=== PATIENT | female | born 1975 | race Caucasian/White ===

== ENCOUNTER 2023-12-29 16:38 | Outpatient (OUT) | payer BC, SELFPAY ==
--- NOTE | 2023-12-29 | MM_ITS ---
Patient Name: COLEEN JUAN MR#: [id number] : 1975 Exam Date: 12/29/2023 Ordering Doctor: DR TINY [facility] REPORT PROCEDURE: MM TOMOSYNTHESIS SCREENING BI COMPARISON: MG MAMM SCREEN 3D BAKARI CAD, 08/22/2021. MG MAMM SCREEN 3D BAKARI CAD, 09/11/2022. INDICATIONS: Screening for malignant neoplasm Calculator Name NCI Breast Cancer Risk Assessment Tool 5 Year Breast Cancer Risk 0.70% Lifetime Breast Cancer Risk 6.60% Personal Breast Cancer No Personal Ovarian Cancer No Treatments None Family Cancers Grandmother-maternal with breast cancer at age ~40; Grandmother-maternal with ovarian cancer at age ~58; Father with brain cancer at age 46. LOCATION: [facility] BREAST COMPOSITION: Scattered areas fibroglandular density. FINDINGS: DIAGNOSTIC CATEGORY 1--NEGATIVE. NO CHANGE FROM COMPARISON ASSESSMENT. Scattered benign-appearing calcifications are present. Scattered benign-appearing lymph nodes are present. RIGHT BREAST: No significant suspicious finding. LEFT BREAST: No significant suspicious finding. RECOMMENDATIONS: ROUTINE MAMMOGRAM AND CLINICAL EVALUATION IN 12 MONTHS. PLEASE NOTE: A NORMAL MAMMOGRAM DOES NOT EXCLUDE THE POSSIBILITY OF BREAST CANCER. A CLINICALLY SUSPICIOUS PALPABLE LUMP SHOULD BE BIOPSIED. Dictated by: Ugo Silverio MD on 12/30/2023 at 09:25 Approved by: Ugo Silverio MD on 12/30/2023 at 09:26
== END 2023-12-29 16:39 | disposition home or self-care (01) ==
LOC: MAMMO 16:38
PROVIDERS: PCP Family Medicine; Visit Provider Obstetrics & Gynecology
DX: Z12.31 Encounter for screening mammogram for malignant neoplasm of breast (principal); Z80.3 Family history of malignant neoplasm of breast; Z80.41 Family history of malignant neoplasm of ovary; Z80.8 Family history of malignant neoplasm of other organs or systems
CPT/HCPCS: 77063; 77067

== ENCOUNTER 2025-01-05 14:57 | Outpatient (OUT) | payer BC, SELFPAY ==
--- OUTSIDE RECORDS SUMMARY | 2025-01-05 15:01 | XMS_ITS | CCD ---
Author Organization [facility] Care Team Providers Care 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 Name Role Phone Misha Hernandez Primary Care Provider [phone] DAVID, DR MENDOZA Admitting Unavailable DAVID, DR MENDOZA Attending Unavailable DAVID, DR MENDOZA Primary Care Unavailable DAVID, DR MENDOZA Consulting Unavailable WEST, DR LYUDMILA Wilkins Consulting Unavailable DAVID, DR MENDOZA Admitting Unavailable DAVID, DR MENDOZA Attending Unavailable DAVID, DR MENDOZA Primary Care Unavailable DAVID, DR MENDOZA Consulting Unavailable Yari Meza Unavailable Misha Hernandez MD Primary Care Provider Misha Hernandez MD Unavailable Misha Hernandez MD Primary Care Provider [phone] Misha Hernandez MD Unavailable [phone] Misha Hernandez MD Primary Care Provider IVY CANCINO Attending Unavailable MISHA HERNANDEZ Attending Unavailable MISHA HERNANDEZ Attending Unavailable Misha Hernandez MD Primary Care Provider RUSSELL YANEZ Referring Unavailable MISHA HERNANDEZ Primary Care Unavailable Allergies Allergy Classification Reported Allergen(s) Allergy Type Date of Onset Reaction(s) Facility (3 sources) bee venom Propensity to adverse reactions to drug 2 [facility] (6 sources) Honey bee venom Allergy to substance 3 [facility] Medications Current Medications Medication Drug Class(es) Dates Sig (Normalized) Sig (Original) Ascorbic Acid (4 sources) Vitamin C take 1 tablet by mouth once daily Ascorbic Acid (VITAMIN C PO) Take 1 tablet by mouth daily 0 Active Doxylamine Succinate, Sleep, (UNISOM PO) (1 source) Doxylamine Succinate, Sleep, (UNISOM PO) Take by mouth 0 Active [id number] 0.15 ml EPINEPHrine 1 mg/ml auto-injector (6 sources) alpha-Adrenergic Agonist, beta-Adrenergic Agonist, Catecholamine Start: 09-14-2023 End: 09-13-2024 EPINEPHrine (AUVI-Q) 0.15 mg/0.15 mL IJ solution auto-injector injection Indications: Bee sting reaction, accidental or unintentional, subsequent encounter Inject 0.3 mL (0.3 mg) into the shoulder, thigh, or buttocks if needed for anaphylaxis. 1 each 1 09/14/2023 Active Start: 03-02-2021 EPINEPHrine (E PIPEN) 0.3 MG/0.3ML SOAJ injection USE DIRECTED 0 03/02/2021 Active ethinyl estradiol 0.035 mg / norgestimate 0.25 mg oral tablet (13 sources) Progestin, Estrogen Start: 12-14-2024 take 1 tablet by mouth once daily norgestimate-ethinyl estradiol (SPRINTEC 28) 0.25-35 MG-MCG per tablet Indications: Irregular menstrual cycle Take 1 tablet by mouth once daily 84 tablet 4 12/14/2024 Active Start: 12-03-2023 take 1 tablet by pillo th once daily norgestimate-ethinyl estradiol (SPRINTEC 28) 0.25-35 MG-MCG per tablet Indications: Irregular menstrual cycle Take 1 tablet by mouth once daily 84 tablet 4 12/03/2023 Active Start: 08-21-2022 take 1 tablet by pillo th once daily norgestimate-ethinyl estradiol (SPRINTEC 28) 0.25-35 MG-MCG per tablet TAKE ONE TABLET BY MOUTH ONCE DAILY 28 tablet 12 08/21/2022 Active Start: 06-06-2021 take 1 tablet by pillo th once daily norgestimate-ethinyl estradiol (ORTHO-CYCLEN, 28,) 0.25-35 MG-MCG per tablet Indications: Secondary dysmenorrhea Take 1 tablet by mouth daily 1 packet 12 06/06/2021 Active Start: 05-31-2020 take 1 tablet by pillo th once daily norgestimate-ethinyl estradiol (ORTHO-CYCLEN, 28,) 0.25-35 MG-MCG per tablet Indications: Secondary dysmenorrhea Take 1 tablet by mouth daily 1 packet 12 05/31/2020 Active take 1 tablet by pillo th in the morning Sprintec 28 0.25-35 MG-MCG tablet Take 1 tablet by mouth in the morning. Active Fiber (4 sources) take 2 tablets by mouth once daily FIBER PO Indications: chewable Take 2 tablets by mouth daily Indications: chewable 0 Active Levonorgestrel-Ethinyl Estrad unknown (1 source) levothyroxine sodium 0.1 mg oral tablet (13 sources) l-Thyroxin e Start: 03-07-2024 End: 08-29-2024 levothyroxine (Synthroid) 100 MCG tablet Indications: Acquired hypothyroidism (CMS/HCC) 0.5 tablet twice daily before meals 90 tablet 1 08/29/2024 Active Start: 07-01-2022 take 0.5 tablet by m outh twice daily EUTHYROX 50 MCG tablet TAKE 1/2 (ONE-HALF) TABLET BY MOUTH TWICE DAILY ON AN EMPTY STOMACH FOR 30 DAYS 0 07/01/2022 Active Start: 06-04-2021 EUTHYROX 137 M CG tablet take 1 tablet by pillo th once daily, then take 0.5 tablet by mouth twice daily levothyroxine (SYNTHROID) 100 MCG tablet Take 1 tablet by mouth Daily 1/2 Tab BID Active Levothyroxine So dium Active liothyronine sodium 0.005 mg oral tablet (12 sources) l-Triiodothyronine Start: 01-15-2023 Liothyronin e Sodium Dec, Active Start: 07-30-2022 End: 08-29-2024 liothyronine (Cytomel) 5 MCG tablet Indications: Chronic fatigue , ESS (euthyroid sick syndrome) Take 1 tablet in AM and 1 tablet in PM on an empty stomach. VANESSA; Sigma or GreenFarseer brands only 180 tablet 1 08/29/2024 Active metroNIDAZOLE 500 mg oral tablet (1 source) Nitroimidazole Antimicrobial Start: 06-06-2020 End: 06-13-2020 take 1 tablet by mouth twice daily metroNIDAZOLE (FLAGYL) 500 MG tablet Indications: Bacterial vaginitis Take 1 tablet by mouth 2 times daily for 7 days 14 tablet 0 06/06/2020 06/13/2020 Active Multiple Vitamin (MULTI-VITAMIN DAILY PO) (3 sources) Multiple Vitamin (MULTI-VITAMIN DAILY PO) Take by mouth Active Multiple Vitamin (MULTI-VITAMIN DAILY PO) Take by mouth 0 Active Multiple Vitamin (multivitamin) tablet (3 sources) take 1 tablet by mouth once daily Multiple Vitamin (multivitamin) tablet Take 1 tablet by mouth Daily Active naproxen sodium 550 mg oral tablet (4 sources) Nonsteroidal Anti-inflammatory Drug Start: 02-24-20 17 take 1 tablet by mouth twice daily as needed for pain naproxen sodium (ANAPROX) 550 MG tablet Indications: Dysmenorrhea Take 1 tablet by mouth 2 times daily as needed for Pain 60 tablet 3 02/23/2017 Active nystatin 645170 unt/ml oral suspension (1 source) Polyene Antifungal Start: 01-16-20 take 4 mL by mouth four times daily Nystatin 620282 UNIT/ML 4 ml swish and swallow Mouth/Throat Four times a day for 14 days Dec, Active Probiotic Product (PROBIOTIC PO) (4 sources) take 1 tablet by mouth once daily Probiotic Product (PROBIOTIC PO) Take 1 tablet by mouth daily 0 Active Completed/Discontinued Medications Medication Drug Class(es) Dates Sig (Normalized) Sig (Original) Ketorolac (1 source) Nonsteroidal Anti-inflammatory Drug, Cyclooxygenase Inhibitor Start: 09-09-2016 Toradol per 15 mg Aug, 60 mg Problems Active Problems Problem Classification Problem Date Documented Da te Episodic/Chronic Abdominal pain (1 source) Abdominal pain; Translations: [Unspecified abdominal pain] Episodic Diseases of mouth; excluding dental (2 sources) Lesion of tongue; Translations: [Other diseases of tongue] 11-15-2024 Episodic Malaise and fatigue (8 sources) Fatigue; Translations: [Chronic fatigue, unspecified] Onset: 08-13-2023 08-23-2024 Chronic Mycoses (3 sources) Candidal stomatitis; Translations: [Candidiasis of mouth] Episodic Other gastrointestinal disorders (1 source) Irritable bowel syndrome; Translations: [Irritable bowel syndrome without diarrhea] Chronic Other gastrointestinal disorders (1 source) Constipation; Translations: [Constipation, unspecified] Episodic Other gastrointestinal disorders (1 source) Diarrhea; Translations: [Diarrhea, unspecified] Episodic Other nutritional; endocrine; and metabolic disorders (1 source) Body mass index 25-29 - overweight; Translations: [Body mass index (BMI) 27.0-27.9, adult] Episodic Other screening for suspected conditions (not mental disorders or infectious disease) (4 sources) Encounter for screening mammogram for malignant neoplasm of breast; Translations: [ENC SCR MAMMO MALIG NEOPLASM BREAST] Onset: 09-11-2022 Episodic Other skin disorders (2 sources) Neck swelling; Translations: [Neck swelling] Episodic Residual codes; unclassified (1 source) Family history of malignant neoplasm of breast; Translations: [FAMILY HX MALIG NEOPLASM OF BREAST] Onset: 09-15-2022 Episodic Residual codes; unclassified (1 source) Family history of malignant neoplasm of ovary; Translations: [FAM HX MALIGNANT NEOPLASM OVARY] Onset: 09-15-2022 Episodic Residual codes; unclassified (1 source) Family history of malignant neoplasm of other organs or systems; Translations: [FAM HX MALIG NEOPLASM OTH ORGN/SYS] Onset: 09-15-2022 Episodic Thyroid disorders (16 sources) Acquired hypothyroidism; Translations: [Hypothyroidism, unspecified] Onset: 08-13-2023 08-29-2024 Chronic Unclassified (1 source) Patient encounter status; Translations: [Encounter for well woman exam with routine gynecological exam] Unclassified (2 sources) CONTACT W/AND (SUSP) EXPOS COVID-19; Translations: [CONTACT W/AND (SUSP) EXPOS COVID-19] Onset: 10-05-2021 Unclassified (1 source) COUGH, UNSPECIFIED; Translations: [COUGH, UNSPECIFIED] Onset: 10-05-2021 Viral infection (1 source) COVID-19; Translations: [COVID-19] Onset: 10-05-2021 Past or Other Problems Problem Classification Problem Date Documented Da te Episodic/Chronic Other lower respiratory disease (1 source) Other specified respiratory disorders; Translations: [OTHER SPEC RESPIRATORY DISORDERS] Onset: 10-05-2021 Episodic Other nutritional; endocrine; and metabolic disorders (8 sources) Overweight; Translations: [Overweight] Onset: 08-13-2023 08-23-2024 Episodic Other upper respiratory disease (1 source) Other specified disorders of nose and nasal sinuses; Translations: [OTH SPEC D/O NOSE NASAL SINUSES] Onset: 10-05-2021 Episodic Poisoning by nonmedicinal substances (6 sources) Bee sting; Translations: [Toxic effect of venom of bees, accidental (unintentional), initial encounter] Onset: 09-14-2023 09-14-2023 Episodic Thyroid disorders (8 sources) Sick-euthyroid syndrome; Translations: [Sick-euthyroid syndrome] Onset: 08-13-2023 08-29-2024 Episodic Unclassified (1 source) CONTACT W/AND (SUSP) EXPOS COVID-19; Translations: [CONTACT W/AND (SUSP) EXPOS COVID-19] Onset: 09-30-2021 Results Test Name Value Interpretation Reference Range Facility [facility] CYTOLOGYon 12-22-2024 [facility] CYTOLOGY (NOTE) Path Number: [id number] DIAGNOSIS Imaged ThinPrep Pap - Cervical (1 monolayer slide): Specimen Adequacy: Satisfactory for evaluation. -Endocervical/transf ormation zone component is absent. Descriptive Diagnosis: Negative for intraepithelial lesion or malignancy. Cytotech Screener: EY Electronically Signed Out Silvestre Davis CT(ASCP) ey/12/22/2024 Source of Specimen: A: Imaged ThinPrep Pap - Cervical (1 monolayer slide) HPV Reflex?............. .........HPV if ASCUS Clinical History Oral Contraceptives LEEP Z01.419 Routine utility operator exam without abnormal findings Processing Lab: [address] [id number] Interpretation performed at [address] [address] This Pap Test has been evaluated with the assistance of the ThinPrep Pap Test Imaging System. The Pap smear is a screening test primarily for squamous epithelial lesions, which is subject to both false negative and false positive results. Your patient should be reminded to consult you immediately if she experiences any suspicious signs or symptoms, regardless of her Pap smear result. GYNECOLOGIC CYTOLOGY REPORT Patient Name: COLEEN MARTIN [facility] Rec: [id number] [facility] [employer] [facility] ANATOMIC PATHOLOGY [address] [place] [address]. [place], [place] [address] [facility] Original Ordering Provider: RUSSELL YANEZ [facility] Cytology Reporton 12-14-2024 Cytology report Cyto stain.thin prep Doc (Cvx/Vag) (NOTE) Path Number: [id number] DIAGNOSIS Imaged ThinPrep Pap - Cervical (1 monolayer slide): Specimen Adequacy: Satisfactory for evaluation. -Endocervical/transf ormation zone component is absent. Descriptive Diagnosis: Negative for intraepithelial lesion or malignancy. Cytotech Screener: EY Electronically Signed Out Silvestre Davis CT(ASCP) ey/12/22/2024 Source of Specimen: A: Imaged ThinPrep Pap - Cervical (1 monolayer slide) HPV Reflex?............. .........HPV if ASCUS Clinical History Oral Contraceptives LEEP Z01.419 Routine utility operator exam without abnormal findings Processing Lab: [address] [phone] Interpretation performed at [address] [phone] This Pap Test has been evaluated with the assistance of the ThinPrep Pap Test Imaging System. The Pap smear is a screening test primarily for squamous epithelial lesions, which is subject to both false negative and false positive results. Your patient should be reminded to consult you immediately if she experiences any suspicious signs or symptoms, regardless of her Pap smear result. GYNECOLOGIC CYTOLOGY REPORT Patient Name: COLEEN MARTIN [facility] Rec: [id number] [facility] [employer] [facility] ANATOMIC PATHOLOGY [address] [place] [address]. [place], [place] [address] [facility] MG MAMM SCREEN 3D BAKARI CADon 09-11-2022 MG MAMM SCREEN 3D BAKARI CAD Patient: COLEEN MARTIN Exam Date: 09/11/2022 : 1975 Gender:F Ordering : DR MISHA HERNANDEZ . Admission #: [id number] Family : DR RUSSELL YANEZ Order #: [id number] CLICK HERE TO VIEW EXAM RADIOLOGY REPORT PROCEDURE: MAMMOGRAM SCREENING 3D BILATERAL CAD COMPARISON: MG MAMM SCREEN BAKARI W CAD, 08/14/2020. MG MAMM SCREEN 3D BAKARI CAD, 08/22/2021. INDICATIONS: Screening mammography Calculator Name NCI Breast Cancer Risk Assessment Tool 5 Year Breast Cancer Risk 0.70% Lifetime Breast Cancer Risk 6.70% Personal Breast Cancer No Personal Ovarian Cancer No Treatments None Family Cancers Grandmother-maternal with breast cancer at age 40; Grandmother-maternal with ovarian cancer at age 58; Father with brain cancer at age 46. LOCATION: [facility] BREAST COMPOSITION: Scattered areas fibroglandular density. FINDINGS: DIAGNOSTIC CATEGORY 1--NEGATIVE. NO CHANGE FROM COMPARISON ASSESSMENT. Scattered benign-appearing calcifications are present. Scattered benign-appearing lymph nodes are present. RIGHT BREAST: No significant suspicious finding. LEFT BREAST: No significant suspicious finding. RECOMMENDATIONS: ROUTINE MAMMOGRAM AND CLINICAL EVALUATION IN 12 MONTHS. PLEASE NOTE: A NORMAL MAMMOGRAM DOES NOT EXCLUDE THE POSSIBILITY OF BREAST CANCER. A CLINICALLY SUSPICIOUS PALPABLE LUMP SHOULD BE BIOPSIED. Dictated by: Lyudmila Silverio MD on 09/12/2022 at 10:35 Approved by: Lyudmila Silverio MD on 09/12/2022 at 10:58 Normal [facility] Q - T3 TOTALon 03-18-2022 T3, TOTAL 139 ng/dL Normal 76-181 [facility] Research Program Manager Comment on above: Order Comment: [facility] Testing performed at: [facility], [facility] [facility], [address] [place] [address], [address] [place] [address], [id number], Electrical Tryout Person: Shane Powell MD [facility] Collection Date/Time: [facility] Results Received Date/Time: [facility] Reported Date/Time: Performed By: #### 8 59X, [id number] #### [facility] Default [address] [place] [address] Q - T3,REVERSE,LC/MS/MSon T3 REVERSE, LC/MS/MS 24 ng/dL Normal 8-25 [facility] Research Program Manager Comment on above: Order Comment: [facility] Testing performed at: [facility], [facility], [address] [address], [place], [place], , Electrical Tryout Person: Charles Bowling M.D.,PhD [facility] Collection Date/Time: [id number] [facility] Results Received Date/Time: [facility] Reported Date/Time: Result Comment: This test was developed and its analytical performance characteristics have been determined by [facility] [place], [place]. It has not been cleared or approved by the U.S. Food and Drug Administration. This assay has been validated pursuant to the CLIA regulations and is used for clinical purposes. Performed By: #### 8 59X, [id number] #### [facility] Default [address] [place] [address] Free T3on 03-03-2022 FT3 2.68 pg/mL Normal 2.00-4.40 [facility] Comment on above: Performed By: #### T SH, FT4, FT3 #### [facility] [address] [place], [place] [id number] Free T4on 03-03-2022 Free T4 [Mass/Vol] 1.25 ng/dL Normal 0.80-1.80 [facility] [place] [facility] Comment on above: Performed By: #### T SH, FT4, FT3 #### [facility] [address] [place], [place] [id number] TSHon 03-03-2022 TSH 1.210 uIU/mL Normal 0.400-4.500 [facility] Research Program Manager Comment on above: Performed By: #### T SH, FT4, FT3 #### [facility] [address] [place], [place] [id number] Covid-19 PCR ([facility])on SARS-CoV-2 (COVID-19) RNA ADRIANA+probe Ql (Unsp spec) Detected Critically abnormal NOT DETECTED [facility] Comment on above: Result Comment: This test is not yet approved or cleared by the [place] FDA. When there are no FDA-approved or cleared tests available, and other criteria are met, FDA can make tests available under an emergency access mechanism called an Emergency Use Authorization (EUA). The EUA for this test is supported by the Hogshead Mat Assembler of Health and Human Service's (HHS's) declaration that circumstances exist to justify the emergency use of in vitro diagnostics for the detection and/or diagnosis of the virus that causes COVID-19. This EUA will remain in effect (meaning this test can be used) for the duration of the COVID-19 declaration justifying emergency of IVDs, unless it is terminated or revoked by FDA (after which the test may no longer be used). Performed By: #### C VDTB #### [facility] [address] [address] [address] Archie Jones TSH with Reflexon 06-11-2020 Interpretation and review of laboratory results Abnormal [place], [place] TSH Qn 5.33 m[IU]/L [place], [place] US HEAD NECK SOFT TISSUE THY ROIDon 06-11-2020 Thyroid gland is diffusely enlarged. It is also heterogeneous and hypervascular. [place], [place] EXAMINATION: THYROID ULTRASOUND 06/11/2020 COMPARISON: None HISTORY: ORDERING SYSTEM PROVIDED HISTORY: Neck swelling TECHNOLOGIST PROVIDED HISTORY: Noticeable and palpable swelling in the right inferior ventral neck FINDINGS: Right thyroid lobe: 7.1 x 3.1 x 3.1 cm Left thyroid lobe: 6.1 x 2.8 x 2.8 cm Isthmus: 6 mm Thyroid Gland: Thyroid gland is diffusely enlarged an abnormally heterogeneous and hypervascular. Nodules: No thyroid nodules are present. Cervical lymphadenopathy: No abnormal lymph nodes in the imaged portions of the neck. [place], [place] Karl, [facility] Incoming Radiant Results From [facility] - 06/11/2020 5:37 PM EDT EXAMINATION: THYROID ULTRASOUND 06/11/2020 COMPARISON: None HISTORY: ORDERING SYSTEM PROVIDED HISTORY: Neck swelling TECHNOLOGIST PROVIDED HISTORY: Noticeable and palpable swelling in the right inferior ventral neck FINDINGS: Right thyroid lobe: 7.1 x 3.1 x 3.1 cm Left thyroid lobe: 6.1 x 2.8 x 2.8 cm Isthmus: 6 mm Thyroid Gland: Thyroid gland is diffusely enlarged an abnormally heterogeneous and hypervascular. Nodules: No thyroid nodules are present. Cervical lymphadenopathy: No abnormal lymph nodes in the imaged portions of the neck. IMPRESSION: Thyroid gland is diffusely enlarged. It is also heterogeneous and hypervascular. [place], [place] Vital Signs Date Time Vital Sign Value Performing Clinician Facility 11-15-2024 14:53-0500 Body height 172.7 cm Ivy Cancino MD Work Phone: [facility] 11-15-2024 14:53-0500 Body mass index (BMI) [Ratio] 27.37 kg/m2 Ivy Cancino MD Work Phone: [facility] 11-15-2024 14:53-0500 Body weight 81.65 kg Ivy Cancino MD Work Phone: [facility] 11-15-2024 14:53-0500 Diastolic blood pressure 69 mm[Hg] Ivy Cancino MD Work Phone: [facility] 11-15-2024 14:53-0500 Heart rate 72 /min Ivy Cancino MD Work Phone: [facility] 11-15-2024 14:53-0500 Systolic blood pressure 130 mm[Hg] Ivy Cancino MD Work Phone: [facility] 08-29-2024 15:04-0500 Body height 172.7 cm Misha Hernandez MD Work Phone: [facility] 08-29-2024 15:04-0500 Body mass index (BMI) [Ratio] 27.37 kg/m2 Misha Hernandez MD Work Phone: [facility] 08-29-2024 15:04-0500 Body weight 81.65 kg Misha Hernandez MD Work Phone: [facility] 01-15-2023 19:25-0400 Body height 172.72 cm Yari Meza Other [facility] Other 01-15-2023 19:25-0400 Body mass index (BMI) [Ratio] 25.85 kg/m2 Yari Meza Other [facility] Other 01-15-2023 19:25-0400 Body temperature 97.1 [degF] Yari Meza Other [facility] Other 01-15-2023 19:25-0400 Body weight 77.11 kg Yari Meza Other [facility] Other 01-15-2023 19:25-0400 Respiratory rate 18 /min Yari Meza Other [facility] Other 01-15-2023 19:25-0400 SaO2% (BldA) [Mass fraction] 98 % Yari Meza Other [facility] Other Encounters Encounter Date Encounter Type Care Provider Facility Start: 12-14-2024 End: 12-14-2024 ambulatory RUSSELL Zamora [facility] Start: 12-14-2024 Encounter for gynecological examination (general) (routine) without abnormal findings [facility] Start: 12-14-2024 End: 12-14-2024 Patient encounter procedure Misha Hernandez MD Work Phone: [facility] Start: 12-14-2024 End: 12-14-2024 Subsequent hospital visit by physician Misha Hernandez MD Work Phone: [facility] Comment on above: Encounter for well w rao exam with routine gynecological exam Start: 12-14-2024 End: 12-23-2024 [facility] Result Encounter Generic External Data Provider [facility] Unsolicited Start: 12-14-2024 End: 12-23-2024 [facility] Result Encounter Generic External Data Provider [facility] External Department Unsolicited Start: 11-15-2024 End: 11-15-2024 Office outpatient new 30 minutes Ivy Cancino MD Work Phone: [facility] Comment on above: Tongue lesion (Prima ry Dx) Start: 11-15-2024 End: 11-15-2024 ambulatory IVY CANCINO Not Available Start: 11-15-2024 End: 11-15-2024 Bamboo flowsheet Ivy Cancino MD Work Phone: [facility] Start: 11-15-2024 End: 11-15-2024 Bamboo flowsheet Ivy Cancino MD Work Phone: [facility] Start: 08-29-2024 End: 08-29-2024 Office outpatient visit 25 minutes Misha Hernandez MD Work Phone: [facility] Comment on above: Acquired hypothyroid ism (CMS/HCC) (Primary Dx); Eric's disease (CMS/HCC); ESS (euthyroid sick syndrome); Chronic fatigue; Overweight; Thrush Start: 08-29-2024 End: 08-29-2024 ambulatory MISHA HERNANDEZ Not Available Start: 03-07-2024 End: 03-07-2024 ambulatory MISHA HERNANDEZ Not Available Start: 12-03-2023 End: 12-03-2023 Patient encounter procedure Misha Hernandez MD Work Phone: [facility] Start: 12-03-2023 End: 12-03-2023 Subsequent hospital visit by physician Misha Hernandez MD Work Phone: [facility] Comment on above: Women's annual routi ne gynecological examination Start: 01-15-2023 End: 01-15-2023 ambulatory Yari Meza Other [facility] Other Start: 01-15-2023 Office outpatient ne w 20 minutes Yari Meza [facility] Start: 09-11-2022 End: 09-12-[address] MISHA HERNANDEZ Facility:[facility] Start: 08-21-2022 End: 08-21-2022 Patient encounter procedure Misha Hernandez MD Work Phone: [facility] Start: 08-21-2022 End: 08-21-2022 Subsequent hospital visit by physician Misha Hernandez MD Work Phone: [facility] Comment on above: Women's annual routi ne gynecological examination Start: 09-30-2021 End: 09-30-[address] MISHA HERNANDEZ Facility:[facility] Start: 06-06-2021 End: 06-06-2021 Patient encounter procedure Misha Hernandez MD Work Phone: [facility] Start: 06-06-2021 End: 06-06-2021 Subsequent hospital visit by physician Misha Hernandez MD Work Phone: [facility] Comment on above: Women's annual routi ne gynecological examination Start: 06-11-2020 End: 06-13-2020 Subsequent hospital visit by physician [facility] Ultrasound Room [facility] Comment on above: Neck swelling Start: 05-31-2020 End: 05-31-2020 Subsequent hospital visit by physician Misha Hernandez [facility] Comment on above: Encounter for dennis yeh exam with routine gynecological exam Procedures Date Procedure Procedure Detail Performing Clinician Start: 12-14-2024 MHPT CYTOLOGY Generic E xternal Data Provider Start: 12-30-2023 Mammography Misha uribe MD Work Phone: Start: 12-03-2023 Microscopic observat ion [Identifier] in Cervix by Cyto stain Misha Hernandez MD Work Phone: Start: 08-21-2022 Microscopic observat ion [Identifier] in Cervix by Cyto stain Misha Hernandez MD Work Phone: Start: 06-06-2021 Microscopic observat ion [Identifier] in Cervix by Cyto stain Misha Hernandez MD Work Phone: Start: 06-11-2020 Us soft tissue head & neck real time imge docm Russell Yanez Work Phone: Start: 06-11-2020 Assay of thyroid stimulating hormone tsh Russell Yanez Work Phone: Start: 02-10-2018 Colonoscopy Misha uribe MD Work Phone: Plan of Treatment Date Care Activity Detail Author Start: 02-11-2028 Screening for malign ant neoplasm of colon [facility] Start: 12-03-2026 Screening for malign ant neoplasm of cervix [facility] Start: 12-28-2025 Screening for malign ant neoplasm of [facility] Start: 08-21-2025 [facility]ening for malign ant [facility]ix [facility] Start: 02-26-2025 End: 08-29-2025 T3, reverse T3, reverse Lab Routine Chronic fatigue ESS (euthyroid sick syndrome) Expected: 02/26/2025 (Approximate), Expires: 08/29/2025 [facility] Comment on above: Expected: 02/26/2025 (Approximate), Expires: 08/29/2025 Start: 02-26-2025 End: 08-29-2025 Thyrotropin [Units/volume] in Serum or Plasma TSH Lab Routine Acquired hypothyroidism (CMS/HCC) Chronic fatigue Expected: 02/26/2025 (Approximate), Expires: 08/29/2025 [facility] Comment on above: Expected: 02/26/2025 (Approximate), Expires: 08/29/2025 Start: 02-26-2025 End: 08-29-2025 Thyroxine (T4) free [Mass/volume] in Serum or Plasma T4, free Lab Routine Acquired hypothyroidism (CMS/HCC) Chronic fatigue Expected: 02/26/2025 (Approximate), Expires: 08/29/2025 [facility] Comment on above: Expected: 02/26/2025 (Approximate), Expires: 08/29/2025 Start: 02-26-2025 End: 08-29-2025 Triiodothyronine (T3) [Mass/volume] in Serum or Plasma T3 Lab Routine Chronic fatigue ESS (euthyroid sick syndrome) Expected: 02/26/2025 (Approximate), Expires: 08/29/2025 [facility] Work Phone: Comment on above: Expected: 02/26/2025 (Approximate), Expires: 08/29/2025 Start: 02-26-2025 End: 08-29-2025 Triiodothyronine (T3) Free [Mass/volume] in Serum or Plasma T3, free Lab Routine Chronic fatigue ESS (euthyroid sick syndrome) Expected: 02/26/2025 (Approximate), Expires: 08/29/2025 [facility] Comment on above: Expected: 02/26/2025 (Approximate), Expires: 08/29/2025 Start: 02-22-2025 End: 02-22-2025 Patient encounter procedure [facility] [address] Start: 12-29-2024 Screening for malign ant neoplasm of breast Mammogram [facility] Start: 12-05-2024 End: 12-05-2024 Patient encounter procedure 12/05/2024 3:40 PM EST Office Visit [facility] Part of [address] [place] [id number] Russell Yanez MD [address] [place] [address] [place] [address] PAP [facility] Part of [facility] Comment on above: PAP Start: 11-15-2024 End: 11-15-2024 Patient encounter procedure 11/15/2024 3:00 PM EST Office Visit [facility] [address] [facility] [address] [place] [id number] Ivy Cancino MD [address] [facility] [address] [place] [address] Arrived [facility] Comment on above: Arrived Start: 06-26-2024 COVID-19 Vaccine ( season) COVID-19 Vaccine ( season) [facility] Start: 06-26-2024 Influenza vaccination Influenza Vacc ine (#1) [facility] Start: 06-06-2024 Screening for malign ant neoplasm of cervix [facility] Start: 05-26-2024 Influenza vaccination Flu vaccine (# 1) [facility] Start: 2024 Pneumococcal 50+ yea rs Vaccine (1 of 1 - PCV) Pneumococcal 50+ years Vaccine (1 of 1 - PCV) [facility] Start: 2024 Shingles vaccine (1 of 2) Swan gles vaccine (1 of 2) [facility] Start: 08-27-2023 End: 08-27-2023 Patient encounter procedure 08/27/2023 Office Visit Obstetrics and Gynecology Russell Yanez MD [address] [facility] [address] [place] [address] [facility] Part of [facility] Start: 05-31-2023 Screening for malign ant neoplasm of cervix Cervical cancer screen [facility] [place] [place] Start: 05-26-2023 Influenza vaccination Flu vaccine (# 1) [facility] Start: 06-06-2022 Depression Screen Depression Screen [facility] Start: 05-26-2022 Influenza vaccination Flu vaccine (# 1) [facility] Start: 03-07-2022 Screening for malign ant neoplasm of cervix Cervical cancer screen [place], [place] Start: 06-26-2021 Influenza vaccination Flu vaccine (# 1) [facility] [employer] Phone: Start: 06-06-2021 End: 06-06-2021 Office Visit 06/06/2021 Office Visit Obstetrics and Gynecology Russell Yanez MD [address] [place] [address] Dr [address] [place] [id number] [facility] Start: 02-19-2021 Lipid panel [facility] Start: 06-26-2020 Influenza vaccination Flu vaccine (# 1) [place] Start: 2019 Screening for malign ant neoplasm of colon [facility] Start: 02-19-2019 Diabetes screen Diabetes screen [facility] Start: 2004 Screening for malign ant neoplasm of cervix [facility] Start: 1993 DTaP/Tdap/Td vaccine (1 - Tdap) DTaP/Tdap/Td vaccine (1 - Tdap) [facility] Start: 1993 Hepatitis B vaccine (1 of 3 - 19+ 3-dose series) Hepatitis B vaccine (1 of 3 - 19+ 3-dose series) [facility] Start: 1992 Hepatitis C screening Hepatitis C sc reen [facility] Start: 1986 COVID-19 Vaccine (1) COVID-19 Vaccin e (1) [facility] Work Phone: Start: 1986 Depression Screen Depression Screen [facility] Start: 1974 COVID-19 Vaccine (#1) COVID-19 Vacci ne (#1) [facility] Start: 1974 Hepatitis B vaccine (1 of 3 - 3-dose series) Hepatitis B vaccine (1 of 3 - 3-dose series) [facility] Start: 1974 Hepatitis C screening Hepatitis C sc reen [facility] [employer] Phone: Start: 1974 Screening for malign ant neoplasm of colon [facility] End: 05-31-2020 Cytopathology procedure, preparation of smear, genital source PAP SMEAR Lab Routine Encounter for well woman exam with routine gynecological exam 1 Occurrences starting 05/31/2020 until 05/31/2020 [facility] [place] Comment on above: 1 Occurrences starti ng 05/31/2020 until 05/31/2020 End: 06-06-2021 Cytopathology procedure, preparation of smear, genital source PAP SMEAR Lab Routine Women's annual routine gynecological examination 1 Occurrences starting 06/06/2021 until 06/06/2021 [employer] Phone: Comment on above: 1 Occurrences starti ng 06/06/2021 until 06/06/2021 End: 08-21-2022 Cytopathology procedure, preparation of smear, genital source PAP SMEAR Lab Routine Women's annual routine gynecological examination 1 Occurrences starting 08/21/2022 until 08/21/2022 [facility] [employer] Phone: Comment on above: 1 Occurrences starti ng 08/21/2022 until 08/21/2022 End: 12-14-2024 Cytopathology procedure, preparation of smear, genital source PAP Smear Lab Routine Encounter for well woman exam with routine gynecological exam 1 Occurrences starting 12/14/2024 until 12/14/2024 [facility] [employer] Comment on above: 1 Occurrences starti ng 12/14/2024 until 12/14/2024 End: 06-11-2020 Free T4 [Mass/Vol] T4, Free Lab Routine Once for 1 Occurrences starting 06/11/2020 until 06/11/2020 [facility] Comment on above: Once for 1 Occurrenc es starting 06/11/2020 until 06/11/2020 Free T4 [Mass/Vol] T4, Free Lab Routine 06/11/2020 3:46 PM EDT [facility] Payers Date Payer Category Payer [facility] [id number] 2015 Unknown [id number] 1974 Unknown [id number] 1974 Unknown [id number] 1974 Unknown [id number] 1974 Unknown [id number] 1974 Unknown [id number] 1974 Unknown [id number] 1959 Unknown [id number] Social History Date Type Detail Facility Start: 05-31-2020 End: 11-15-2024 Tobacco smoking status FLIS Former smoker [facility] Start: 05-31-2020 End: 11-15-2024 Tobacco use and exposure Never used [place] Start: 05-31-2020 End: 12-14-2024 Alcohol intake Current non-drinker of alcohol (finding) [place], [place] Start: 03-07-2019 End: 12-03-2023 Tobacco Comment over 20 years ago [place], [place] Start: 1975 Sex Assigned At Not on file [place] Exposure to SARS-CoV -2 (event) Not sure [facility] [place] [place] History of tobacco use [facility] Work Phone: Start: 12-03-2023 End: 11-15-2024 [facility] Start: 12-03-2023 End: 11-15-2024 History of Social function [facility] Patient Health Questionnaire 9 item (PHQ-9) total score [Reported] 0 [facility] Start: 03-07-2024 Tobacco smoking status NHIS Never smoked tobacco [facility] Start: 1975 Sex assigned at Female [facility] Start: 01-07-2023 Gender identity Identifies as female gender (finding) [facility] Start: 09-07-2023 Sexual orientation Heterosexual (finding) [facility] History of tobacco use Cigarette Smoker [facility] Start: 11-15-2024 Alcoholic beverage intake Lifetime non-drinker (finding) [facility] Has the [employer], [employer], or water company threatened to shut off services in your home in past 12Mo No [employer] [facility] (I/We) worried whe er (my/our) food would run out before (I/we) got money to buy more. Never true [facility] History of Present illness Narrative 11-15-2024 Ivy Cancino MD - 11/15/2024 3:00 PM EST Note Date & Type Note Facility 11-15-2024 History of Presen t illness Narrative Subjective Patient ID: Coleen Martin is a 49 y.o. female who presents for Fissure of Tongue Pt reports she wipes stringy debris from her mouth and states her dentist is concerned about an apparent strep pneumo superbug . Pt had a molecular swab done that shows a pansensitive strep pneumo. Review of Systems All other systems reviewed and are negative. Family History Problem Relation Name Age of Onset Alzheimer's disease Mother Brain cancer Father Jamal Rush Cancer Father Jamal Rush Breast cancer Maternal Grandmother Padmini Salas Ovarian cancer Maternal Grandmother Padmini Muron Cancer Maternal Grandmother Padmini Muron Cancer Maternal Grandfather Rusty Salas Cancer Mother's Sister Imani Chapman Thyroid disease Father's Sister Janice Mondragon Active Ambulatory Problems Diagnosis Date Noted Acquired hypothyroidism ([facility]) 08/13/2023 Chronic fatigue 08/13/2023 ESS (euthyroid sick syndrome) 08/13/2023 Eric's disease ([facility]) 08/13/2023 Overweight 08/13/2023 Bee sting reaction 09/14/2023 Resolved Ambulatory Problems Diagnosis Date Noted No Resolved Ambulatory Problems Past Medical History: Diagnosis Date Dental disease Disease of thyroid gland ([facility]) Glaucoma ([facility]) Past Surgical History: Procedure Laterality Date APPENDECTOMY CERVICAL BIOPSY CERVICAL BIOPSY W/ LOOP ELECTRODE EXCISION COLONOSCOPY 03/2018 Allergies Allergen Reactions Bee Venom Current Outpatient Medications on File Prior to Visit Medication Sig Dispense Refill EPINEPHrine (AUVI-Q) 0.15 mg/0.15 mL IJ solution auto-injector injection Inject 0.3 mL (0.3 mg) into the shoulder, thigh, or buttocks if needed for anaphylaxis. 1 each 1 levothyroxine (Synthroid) 100 MCG tablet 0.5 tablet twice daily before meals 90 tablet 1 liothyronine (Cytomel) 5 MCG tablet Take 1 tablet in AM and 1 tablet in PM on an empty stomach. VANESSA; Sigma or Greenstone brands only 180 tablet 1 Multiple Vitamin (multivitamin) tablet Take 1 tablet by mouth Daily Sprintec 28 0.25-35 MG-MCG tablet Take 1 tablet by mouth in the morning. No current facility-administered medications on file prior to visit. Objective Last Recorded Vitals Vitals: 11/15/24 1453 BP: 130/69 Pulse: 72 ENT Physical Exam Constitutional Appearance: patient appears well-developed, well-nourished and well-groomed, Head and Face Appearance: head appears normal and face appears atraumatic; Ear Ear Canals: right ear canal normal; left ear canal normal; Tympanic Membranes: right tympanic membrane normal; left tympanic membrane normal; Nose External Nose: nares patent bilaterally; external nose normal; Internal Nose: septum normal; Oral Cavity/Oropharynx Tongue: normal; Oral mucosa: normal; Hard palate: normal; Soft palate: normal; Tonsils: normal; Neck Neck: neck normal; neck palpation normal; Thyroid: thyroid normal; Respiratory Inspection: breathing unlabored; normal breathing rate; Auscultation: breath sounds are clear; Cardiovascular Inspection: extremities are warm and well perfused; no peripheral edema present; Auscultation: regular rate and rhythm; Assessment/Plan Diagnoses and all orders for this visit: Tongue lesion Pt's exam is normal. I see no sign of any clinically significant infection. If there is concern about a her positive molecular testing, the testing suggests amoxicillin would be an effective tx. documented in this encounter [facility] History of Present illness Narrative 08-29-2024 Misha Hernandez MD - 08/29/2024 3:30 PM EST Note Date & Type Note Facility 08-29-2024 History of Presen t illness Narrative Images from the original note were not included. Patient ID: Coleen Martin is a 49 y.o. female who presents for: Pt here today to review his/hers thyroid labs and any medication changes needed. Fatigue: Present, Unchanged Weight Gain: Absent Inability to lose weight: Present, Unchanged Hair Changes: Present He/She is following the thyroid diet: Fair He/She are taking medications as directed: Good He/She are exercising at least 3 days out of the week for 30 minutes or more: Fair Review of Systems Constitutional: Positive for fatigue. Negative for appetite change. HENT: Negative for trouble swallowing and voice change. Cardiovascular: Negative for palpitations. Musculoskeletal: Negative for arthralgias and myalgias. Psychiatric/Behavioral: Positive for sleep disturbance. The patient is nervous/anxious. Endocrine: Negative for cold intolerance and heat intolerance. During the review of systems she brought up the she is having trouble with the mouth. She is still having problems with thrush. She has the bottom for front teeth rotting out. The dentist wants to have all those pulled and put a bridge. He thought she should see an infectious disease specialist. We previously treated her back in February with clotrimazole and a month of Diflucan together. States she does not remember if it got better or worse. Other than the white coating and her T she is not having any symptoms. We went through a list of all the dental things that she has tried. No visits with results within 1 Month(s) from this visit. Latest known visit with results is: Office Visit on 03/07/2024 Component Date Value Ref Range Status T3, TOTAL 08/12/2024 160 76 - 181 ng/dL Final T3 REVERSE, LC/MS/MS 08/12/2024 13 8 - 25 ng/dL Final Comment: This test was developed and its analytical performance characteristics have been determined by [place]. It has not been cleared or approved by the U.S. Food and Drug Administration. This assay has been validated pursuant to the CLIA regulations and is used for clinical purposes. T3, FREE 08/12/2024 3.2 2.3 - 4.2 pg/mL Final T4, FREE 08/12/2024 1.0 0.8 - 1.8 ng/dL Final TSH 08/12/2024 2.72 mIU/L Final Comment: Reference Range > or = 20 Years 0.40-4.50 Ranges First trimester 0.26-2.66 Second trimester 0.55-2.73 Third trimester 0.43-2.91 Calculated THY Ratio: 12.3 Objective The patient is pleasant and in no acute distress Patient has a distinct white coating to her tongue. You can almost tell she has been using a tongue scraper in the center in its more off to the sides. She has multiple horizontal and vertical fissures. She has a mild bit of scalloping. The tongue itself does not appear reddened inflamed. The gums do not appear reddened inflamed. There is no buccal or pharyngeal thrush. The patient has good eye contact and clear speech Visit Vitals Ht 5' 8 Wt 180 lb BMI 27.37 kg/m OB Status Having periods Smoking Status Never BSA 1.98 m Allergies Allergen Reactions Bee Venom Current Outpatient Medications on File Prior to Visit Medication Sig Dispense Refill EPINEPHrine (AUVI-Q) 0.15 mg/0.15 mL IJ solution auto-injector injection Inject 0.3 mL (0.3 mg) into the shoulder, thigh, or buttocks if needed for anaphylaxis. 1 each 1 Sprintec 28 0.25-35 MG-MCG tablet Take 1 tablet by mouth in the morning. [DISCONTINUED] levothyroxine (Synthroid) 100 MCG tablet 0.5 tablet twice daily before meals 90 tablet 1 [DISCONTINUED] liothyronine (Cytomel) 5 MCG tablet Take 1 tablet in AM and 1 tablet in PM on an empty stomach. VANESSA; [employer] or [employer] brands only 180 tablet 1 No current facility-administered medications on file prior to visit. 1. Acquired hypothyroidism (CMS/HCC) (Primary) This is a complex chronic problem, stable, to goal; management requires moderate decision making I reviewed diet and exercise with the patient. I discussed the patient's current psychosocial and physical condition and the stress impact upon them. I reviewed the multiple unique laboratories and explained the results to the patient. The patient has been re-educated concerning the above diagnoses and that the treatment for some of these may not be considered the standard of care, including TSH suppression when utilized. The patient has been re-educated and instructed concerning medication timing, diet, exercise, and stress reduction as appropriate. I reviewed the patient's current prescriptions and discussed the possibilities of medication renewals, adjustments, new medication start, or stop medication as appropriate. The patient has been instructed to follow up and bring a diet and exercise log, obtain the unique laboratory tests ordered, and the importance of follow up and compliance. The patient was given a chance to ask questions today and all questions were answered. The patient is to contact us if any other questions arise or if any problems occur. - levothyroxine (Synthroid) 100 MCG tablet; 0.5 tablet twice daily before meals Dispense: 90 tablet; Refill: 1 - T4, free; Future - TSH; Future - T4, free - TSH 2. Eric's disease (CMS/HCC) Chronic problem, clinically asymptomatic, causative of the acquired hypothyroidism, monitored longitudinally. 3. ESS (euthyroid sick syndrome) Overall from a thyroid standpoint she seems to be doing well. We did discuss the possibility of trying to make a minor adjustment but I really think her numbers are where she probably needs to be and I am worried I would put her into a tailspin if I tried to adjust them. In prescribing a renewal to their current medication, consideration of the following encompasses moderate decision making; the current prescriptions and supplements, the current allergies and medication intolerances, current medical conditions, and potential drug interactions. Any changes to risks, benefits, and reason for renewing their current medication due to the above were discussed. The patient was given a chance to ask questions today and all questions were answered. The patient is to contact us if any other questions arise or if any problems occur. (Utilizing the original 1994/1996 guidelines or the 2020 office/outpatient code guidelines for selecting the level of E/M service, In both sets of guidelines, prescription drug management appears in the moderate medical decision making (MDM) row. Neither the original guidelines nor the new guidelines state that a new prescription or change is needed in order to credit prescription drug management) - liothyronine (Cytomel) 5 MCG tablet; Take 1 tablet in AM and 1 tablet in PM on an empty stomach. VANESSA; Sigma or Greenstone brands only Dispense: 180 tablet; Refill: 1 - T3; Future - T3, reverse; Future - T3, free; Future - T3 - T3, reverse - T3, free 4. Chronic fatigue Chronic problem, stable, complex in nature with moderate decision making. I discussed with the patient and/or their labor relations representative, their fatigue issues. We discussed how this is improved significantly. We discussed that the patient will almost certainly need to continue to make lifestyle changes including diet, sleep, exercise, and stress management as appropriate. We discussed how this is almost always a multifactorial problem. We further discussed how we will continue to search for refinements in their current treatments or evaluation for further disease processes and then support or treat them as appropriate. We discussed how we can frequently improve the symptoms, but may not be able to completely cure or resolve the issue. The patient was given a chance to ask questions and all questions were answered. - liothyronine (Cytomel) 5 MCG tablet; Take 1 tablet in AM and 1 tablet in PM on an empty stomach. VANESSA; Sigma or Greenstone brands only Dispense: 180 tablet; Refill: 1 - T3; Future - T3, reverse; Future - T3, free; Future - T4, free; Future - TSH; Future - T3 - T3, reverse - T3, free - T4, free - TSH 5. Overweight Lifestyle changes as above 6. Thrush Chronic problem questionable etiology. We did run through a whole series of questions. She does not appear to be at risk for HIV. She has no other rheumatologic type signs. She has no other infections. After discussion we have mutually agreed to not pursue an immune system evaluation at this time. We are going to reach out to [facility] tomorrow and find out what we need to do in order to actually get a culture and sensitivity of this to make sure that were coming back with the yeast or fungus on her tongue. We will call her back after we get that established. documented in this encounter [facility] Healthcare Evaluation note 01-15-2023 Note Date & Type Note Facility 01-15-2023 Evaluation note Encounter Date Diagnosis Assessment Notes Dec, Oral thrush (ICD-10 - B37.0) Discussed diagnosis with patient. Advised to take medication as directed. May continue salt water gargles. Follow up if no improvement of symptoms. Patient verbalizes understanding and is agreeable with treatment plan [facility] Other Evaluation note Note Date & Type Note Facility Evaluation note Diagnosis Women's annual routine gynecological examination documented in this encounter [employer] Phone: Evaluation note Note Date & Type Note Facility Evaluation note Diagnosis Women's annual routine gynecological examination documented in this encounter [facility] [employer] Phone: Evaluation note Note Date & Type Note Facility Evaluation note Diagnosis Women's annual routine gynecological examination [facility] encounter [facility] [facility] Evaluation note Note Date & Type Note Facility Evaluation note Diagnosis Acquired hypothyroidism (CMS/HCC)- Primary Unspecified hypothyroidism Eric's disease (CMS/HCC) Chronic lymphocytic thyroiditis ESS (euthyroid sick syndrome) Euthyroid sick syndrome Chronic fatigue Other malaise and fatigue Overweight Thrush Candidiasis of mouth documented in this encounter [facility] Healthcare Evaluation note Note Date & Type Note Facility Evaluation note Diagnosis Tongue lesion- Primary Unspecified condition of the tongue documented in this encounter [facility] Healthcare Evaluation note Note Date & Type Note Facility Evaluation note Diagnosis Encounter for well woman exam with routine gynecological exam documented in this encounter [facility] [employer] History general Narrative - Reported Note Date & Type Note Facility History general Narrative - Reported Type Medical History glaucoma Surgical History appendectomy Surgical History LEEP Hospitalization History see above [facility] Other Assessments Diagnosis Encounter for well woman exam with routine gynecological exam Diagnosis Neck swelling Swelling, mass, or lump in head and neck Diagnosis Neck swelling Swelling, mass, or lump in head and neck Advance Directives No Advanced Directives Records FoundDocuments on File Type Date Recorded Patient Immigration Inspector Expl anation Advance Directives and Living Will Power of Fermentation Scientist Documents on File Type Date Recorded Patient Immigration Inspector Expl anation ACP-Advance Directive ACP-Power of Fermentation Scientist Documents on File Type Date Recorded Patient Immigration Inspector Expl anation ACP-Advance Directive ACP-Power of Fermentation Scientist Reason for Referral Status Reason Specialty Diagnoses / Procedures Referre d By Contact Referred To Contact Closed Radiology Diagnoses Neck swelling Procedures US Head Neck Soft Tissue Thyroid Russell Yanez MD [address] [place] [address] [facility] [place] [address] Summary Purpose Family History No Family History Records FoundNo Family History Records FoundNo Family History Records FoundNo Family History Records Found Additional Source Comments Reason for Visit (unrecogniz ed section and content) Status Reason Specialty Diagnoses / Procedures Referre d By Contact Referred To Contact Closed Radiology Diagnoses Neck swelling Procedures US Head Neck Soft Tissue Thyroid Russell Yanez MD [address] [place] [address] [facility] [place] [address] Reason Comments Hypothyroidism Reason Comments Fissure of Tongue INFORMATION SOURCE (unrecogn ized section and content) DATE CREATED AUTHOR 03/25/2022 [facility] dical Specialist DATE CREATED AUTHOR AUTHOR'S ORGANIZ ATION 09/15/2022 [facility] DATE CREATED AUTHOR AUTHOR'S ORGANIZ ATION 11/17/2024 [facility] dical Specialists EPIC DATE CREATED AUTHOR AUTHOR'S ORGANIZ ATION 12/24/2024 [facility] p[facility] Care Teams (unrecognized sec tion and content) 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 Start Date End Date Misha Hernandez MD PCP - General 02/20/16 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 Start Date End Date Misha Hernandez MD PCP - General 02/20/16 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 Start Date End Date Misha Hernandez MD [address] [place] [address] (Fax) PCP - [employer] 01/24/21 Misha Hernandez MD [address] [place] [address] (Fax) PCP - General Family Medicine 03/03/23 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 Start Date End Date Misha Hernandez MD [address] [place] [address] (Fax) PCP - [employer] 01/24/21 Misha Hernandez MD [address] [place] [address] (Fax) PCP - General Family Medicine 03/03/23 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 Start Date End Date Misha Hernandez MD [address] [place] [address] (Fax) PCP - [employer] 01/24/21 Misha Hernandez MD [address] [place] [address] (Fax) PCP - General Family Medicine 03/03/23 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 This clinical summary was aggregated from multiple sources. Caution should be exercised in using it in the provision of clinical care. This summary normalizes information from multiple sources, and as a consequence, information in this document may materially change the coding, format and clinical context of patient data. In addition, data may be omitted in some cases. CLINICAL DECISIONS SHOULD BE BASED ON THE PRIMARY CLINICAL RECORDS. [facility] [employer] [facility]. provides no warranty or guarantee of the accuracy or completeness of information in this document.
--- NOTE | 2025-01-05 15:03 | MM_ITS ---
Patient Name: COLEEN JUAN MR#: [id number] : 1975 Exam Date: 01/05/2025 Ordering Doctor: DR TINY DE LA [facility] RADIOLOGY REPORT PROCEDURE: MM TOMOSYNTHESIS SCREENING BI COMPARISON: MM TOMOSYNTHESIS SCREENING BI, 12/29/2023. MG MAMM SCREEN 3D BAKARI CAD, 09/11/2022. MG MAMM SCREEN 3D BAKARI CAD, 08/22/2021. MG MAMM BAKARI SCRN W CAD DIG, 05/01/2014. INDICATIONS: Screening for malignant neoplasm Calculator Name NCI Breast Cancer Risk Assessment Tool 5 Year Breast Cancer Risk 0.70% Lifetime Breast Cancer Risk 6.50% Personal Breast Cancer No Personal Ovarian Cancer No Treatments None Family Cancers Grandmother-maternal with breast cancer at age ~40; Grandmother-maternal with ovarian cancer at age ~58; Father with brain cancer at age 46. LOCATION: [facility] BREAST COMPOSITION: There are scattered areas of fibroglandular density. FINDINGS: DIAGNOSTIC CATEGORY 1--NEGATIVE. LEFT BREAST: No significant suspicious finding. RIGHT BREAST: No significant suspicious finding. RECOMMENDATIONS: ROUTINE MAMMOGRAM AND CLINICAL EVALUATION IN 12 MONTHS. PLEASE NOTE: A NORMAL MAMMOGRAM DOES NOT EXCLUDE THE POSSIBILITY OF BREAST CANCER. A CLINICALLY SUSPICIOUS PALPABLE LUMP SHOULD BE BIOPSIED. Dictated by: Dung Pelletier DO on 01/05/2025 at 15:54 Approved by: Dung Pelletier DO on 01/05/2025 at 15:58
== END 2025-01-05 14:58 | disposition home or self-care (01) ==
LOC: MAMMO 14:57
PROVIDERS: PCP Family Medicine; Visit Provider Obstetrics & Gynecology
DX: Z12.31 Encounter for screening mammogram for malignant neoplasm of breast (principal); Z80.3 Family history of malignant neoplasm of breast; Z80.41 Family history of malignant neoplasm of ovary; Z80.8 Family history of malignant neoplasm of other organs or systems
CPT/HCPCS: 77063; 77067

== ENCOUNTER 2025-10-03 09:29 | Day surgery (SDC) | payer BC, SELFPAY ==
[2025-10-03 09:40] LABS: Platelet Count 224 10^3/uL (150-450)
--- NOTE | 2025-10-03 09:45 | US_ITS ---
[address] [address] Patient Name: COLEEN JUAN MRN: [id number] date: 1975 Sex: F Assigned Patient Location: [place] Current Patient Location: Accession/Order Number: [id number] Exam Date: 10/03/2025 10:30 Report Date: 10/03/2025 11:34 At the request of: REJI HERNANDEZ Procedure: US biopsy thyroid US biopsy thyroid 10/03/2025 11:29 AM SIGNS AND SYMPTOMS: ^Nodule Right Lobe Thyroid, Multinodular Goiter INFORMED CONSENT: Reason for procedure was discussed with the patient. The procedure expectations risks benefits options and alternatives were discussed. All the questions were answered. The patient understood the results cannot be guaranteed. The procedure is indicated and risks were acceptable. Consent was obtained. PROCEDURE: The dominant nodule in the right thyroid lobe was visualized using grayscale and color Doppler sonographic imaging. The skin was marked over this location. The skin was prepped and draped in a sterile manner. 5 mL of lidocaine 1% without epinephrine were used for local anesthesia. A total of 6 fine needle aspirates were performed under ultrasound visualization using a 25-gauge needle. Specimens were given to histology and deemed to be adequate. The needles were removed and hemostasis was gained using manual pressure. A bandage was placed over the puncture site. The patient tolerated the procedure well. No immediate complications were detected. US/US biopsy thyroid IMPRESSION: Successful ultrasound-guided fine-needle aspiration of a dominant nodule in the right thyroid lobe. Impression dictated by: Mark Pitt M.D. 10/03/2025 11:34 AM Dictation Location: [place] [address] Electronically authenticated by: [id number] Y Date: 10/03/2025 11:34
--- OUTSIDE RECORDS SUMMARY | 2025-10-03 09:49 | XMS_ITS | CCD ---
Author Organization [facility] Care Team Providers Care Tank Riveter Name Role Phone Misha Hernandez Primary Care Provider [phone] DAVID, DR MENDOZA Admitting Unavailable DAVID, DR MENDOZA Attending Unavailable DAVID, DR MENDOZA Primary Care Unavailable DAVID, DR MENDOZA Consulting Unavailable WEST, DR LYUDMILA Wilkins Consulting Unavailable DAVID, DR MENDOZA Admitting Unavailable DAVID, DR MENDOZA Attending Unavailable DAVID, DR MENDOZA Primary Care Unavailable DAVID, DR MENDOZA Consulting Unavailable Yari Meza Unavailable Misha Hernandez MD Primary Care Provider Misha Hernandez MD Unavailable [phone] Misha Hernandez MD Primary Care Provider [phone] Misha Hernandez MD Unavailable Misha Hernandez MD Primary Care Provider [phone] Misha Hernandez MD Primary Care Provider RUSSELL YANEZ Referring Unavailable MISHA HERNANDEZ Primary Care Unavailable Misha Hernandez MD Unavailable Misha Hernandez MD Unavailable IVY CANCINO Attending Unavailable MISHA HERNANDEZ Attending Unavailable MISHA HERNANDEZ Attending Unavailable MISHA HERNANDEZ Attending Unavailable MISHA HERNANDEZ Referring Unavailable Allergies Allergy ClassificationReported Allergen(s)Allergy TypeDate of OnsetReaction(s) Facility (3 sources)bee venomPropensity to adverse reactions to abkt66-26-4545MS[facility] (14 sources)Honey bee venomAllergy to raiujzybs51-15-6348[facility] Medications Current Medications MedicationDrug Class(es)DatesSig (Normalized)Sig (Original)Ascorbic Acid (4 sources)Vitamin Ctake 1 tablet by mouth once dailyAscorbic Acid (VITAMIN C PO) Take 1 tablet by mouth daily 0 ActiveDoxylamine Succinate, Sleep, (UNISOM PO) (1 source)Doxylamine Succinate, Sleep, (UNISOM PO) Take by mouth 0 Active [id number] 0.15 ml EPINEPHrine 1 mg/ml auto-injector (14 sources)alpha-Adrenergic Agonist, beta-Adrenergic Agonist, Catecholamine Start: 09-14-2023 End: 79-28-8489NZLBSFPtqbe (AUVI-Q) 0.15 mg/0.15 mL IJ solution auto-injector injection Indications: Bee sting reaction, accidental or unintentional, subsequent encounter Inject 0.3 mL (0.3 mg) into the shoulder, thigh, or buttocks if needed for anaphylaxis. 1 each 1 09/14/2023 ActiveStart: 03-02-2021 EPINEPHrine (EPIPEN) 0.3 MG/0.3ML SOAJ injection USE DIRECTED 0 03/02/2021 Activeethinyl estradiol 0.035 mg / norgestimate 0.25 mg oral tablet (20 sources)Progestin, EstrogenStart: 56-20-8766rflk 1 tablet by mouth once dailynorgestimate-ethinyl estradiol (SPRINTEC 28) 0.25-35 MG-MCG per tablet Indications: Irregular menstrual cycle Take 1 tablet by mouth once daily 84 tablet 4 12/14/2024 ActiveStart: 04-56-1825gxfy 1 tablet by mouth once daily norgestimate-ethinyl estradiol (SPRINTEC 28) 0.25-35 MG-MCG per tablet Indications: Irregular menstrual cycle Take 1 tablet by mouth once daily 84 tablet 4 12/03/2023 ActiveStart: 54-99-7626bscc 1 tablet by mouth once daily norgestimate-ethinyl estradiol (SPRINTEC 28) 0.25-35 MG-MCG per tablet TAKE ONE TABLET BY MOUTH ONCE DAILY 28 tablet 12 08/21/2022 ActiveStart: 90-66-3477rqkf 1 tablet by mouth once dailynorgestimate-ethinyl estradiol (ORTHO-CYCLEN, 28,) 0.25-35 MG-MCG per tablet Indications: Secondarydysmenorrhea Take 1 tablet by mouth daily 1 packet 12 06/06/2021 ActiveStart: 98-15-1729imaw 1 tablet by mouth once dailynorgestimate-ethinyl estradiol (ORTHO-CYCLEN, 28,) 0.25-35 MG-MCG per tablet Indications: Secondarydysmenorrhea Take 1 tablet by mouth daily 1 packet 12 05/31/2020 Activetake 1 tablet by mouth in the morningSprintec 28 0.25-35 MG- MCG tablet Take 1 tablet by mouth in the morning. ActiveFiber (4 sources)take 2 tablets by mouth once dailyFIBER PO Indications: chewable Take 2 tablets by mouth daily Indications: chewable 0 ActiveLevonorgestrel-Ethinyl Estrad unknown (1 source)levothyroxine sodium 0.1 mg oral tablet (20 sources)l-ThyroxineStart: 03-07-2024 End: 29-76-2183foiehktlalkib (Synthroid) 100 MCG tablet Indications: Acquired hypothyroidism 0.5 tablet twice daily before meals 90 tablet 1 02/22/2025 Active Start: 52-49-0898mubq 0.5 tablet by mouth twice dailyEUTHYROX 50 MCG tablet TAKE 1/2 (ONE-HALF) TABLET BY MOUTH TWICE DAILY ON AN EMPTY STOMACH FOR 30 DAYS 0 07/01/2022 ActiveStart: 49-20-2661ZZALQZFP 137 MCG tablettake 1 tablet by mouth once daily, then take 0.5 tablet by mouth twice dailylevothyroxine (SYNTHROID) 100 MCG tablet Take 1 tablet by mouth Daily 1/2 Tab BID ActiveLevothyroxine Sodium Activeliothyronine sodium 0.005 mg oral tablet (20 sources)l-TriiodothyronineStart: 48-34-1894Lyonxjsbfxhs Sodium Dec, ActiveStart: 07-30-2022 End: 20-22-5250glrikfnrfpbc (Cytomel) 5 MCG tablet Indications: ESS (euthyroid sick syndrome) , Chronic fatigue Take 1 tablet in AM and 1 tablet in PM on an empty stomach. VANESSA; Sigma or Greenstone brands only 180 tablet 1 02/22/2025 ActivemetroNIDAZOLE 500 mg oral tablet (1 source)Nitroimidazole AntimicrobialStart: 06-06-2020 End: 47-16-0595emge 1 tablet by mouth twice dailymetroNIDAZOLE (FLAGYL) 500 MG tablet Indications: Bacterial vaginitis Take 1 tablet by mouth 2 times daily for 7 days 14 tablet 0 06/06/2020 06/13/2020 ActiveMultiple Vitamin (MULTI-VITAMIN DAILY PO) (3 sources)Multiple Vitamin (MULTI-VITAMIN DAILY PO) Take by mouth Active Multiple Vitamin (MULTI-VITAMIN DAILY PO) Take by mouth 0 ActiveMultiple Vitamin (multivitamin) tablet (10 sources)take 1 tablet by mouth once dailyMultiple Vitamin (multivitamin) tablet Take 1 tablet by mouth Daily Activenaproxen sodium 550 mg oral tablet (4 sources)Nonsteroidal Anti-inflammatory DrugStart: 00-86-7744iteh 1 tablet by mouth twice daily as needed for painnaproxen sodium (ANAPROX) 550 MG tablet Indications: Dysmenorrhea Take 1 tablet by mouth 2 times daily as needed for Pain 60 tablet 3 02/23/2017 Activenystatin 607616 unt/ml oral suspension (1 source)Polyene AntifungalStart: 41-09-3298hlgc 4 mL by mouth four times daily Nystatin 514132 UNIT/ML 4 ml swish and swallow Mouth/Throat Four times a day for 14 days Dec, ActiveProbiotic Product (PROBIOTIC PO) (4 sources)take 1 tablet by mouth once dailyProbiotic Product (PROBIOTIC PO) Take 1 tablet by mouth daily 0 Active Completed/Discontinued Medications MedicationDrug Class(es)DatesSig (Normalized)Sig (Original)Ketorolac (1 source)Nonsteroidal Anti-inflammatory Drug, Cyclooxygenase InhibitorStart: 75-96-7125Cxeayhi per 15 mg Aug, 60 mg Problems Active Problems Problem ClassificationProblemDateDocumented DateEpisodic/ChronicAbdominal pain (1 source)Abdominal pain; Translations: [Unspecified abdominal pain]Episodic Diseases of mouth; excluding dental (2 sources)Lesion of tongue; Translations: [Other diseases of tongue]11-15-2024 EpisodicMalaise and fatigue (20 sources)Fatigue; Translations: [Chronic fatigue, unspecified]Onset: 816080-47-9827LakjljwXzhtosg (3 sources)Candidal stomatitis; Translations: [Candidiasis of mouth]Episodic Other gastrointestinal disorders (1 source)Irritable bowel syndrome; Translations: [Irritable bowel syndrome without diarrhea]ChronicOther gastrointestinal disorders (1 source)Constipation; Translations: [Constipation, unspecified]EpisodicOther gastrointestinal disorders (1 source)Diarrhea; Translations: [Diarrhea, unspecified]EpisodicOther nutritional; endocrine; and metabolic disorders (1 source)Body mass index 25-29 - overweight; Translations: [Body mass index (BMI) 27.0-27.9, adult]EpisodicOther screening for suspected conditions (not mental disorders or infectious disease) (6 sources)Encounter for screening mammogram for malignant neoplasm of breast; Translations: [Disorder of thyroid gland]Onset: 10-47-1837NngpozbsQzwdt skin disorders (2 sources)Neck swelling; Translations: [Neck swelling]EpisodicResidual codes; unclassified (1 source)Family history of malignant neoplasm of breast; Translations: [FAMILY HX MALIG NEOPLASM OF BREAST]Onset: 95-40-8834XpdvvelaVdnxfkui codes; unclassified (1 source)Family history of malignant neoplasm of ovary; Translations: [FAM HX MALIGNANT NEOPLASM OVARY]Onset: 00-61-5048CtrzdksdYbdaejsk codes; unclassified (1 source)Family history of malignant neoplasm of other organs or systems; Translations: [FAM HX MALIG NEOPLASM OTH ORGN/SYS]Onset: 38-96-3883Gqcbksds Thyroid disorders (20 sources)Acquired hypothyroidism; Translations: [Hypothyroidism, unspecified] Onset: 674791-91-3584PnycuftAbwiywdpnpas (1 source)Patient encounter status; Translations: [Encounter for well woman exam with routine gynecological exam]Unclassified (2 sources)CONTACT W/AND (SUSP) EXPOS COVID-19; Translations: [CONTACT W/AND (SUSP) EXPOS COVID-19]Onset: 40-40-3771Fsrfpnjvphiu (1 source)COUGH, UNSPECIFIED; Translations: [COUGH, UNSPECIFIED]Onset: 29-17-4980Aujin infection (1 source)COVID-19; Translations: [COVID-19]Onset: 10-05-2021 Past or Other Problems Problem ClassificationProblemDateDocumented DateEpisodic/ChronicOther lower respiratory disease (1 source)Other specified respiratory disorders; Translations: [OTHER SPEC RESPIRATORY DISORDERS]Onset: 62-35-2526DrcqubvcOhaxl nutritional; endocrine; and metabolic disorders (20 sources)Overweight; Translations: [Overweight]Onset: 040781-13-2222 EpisodicOther upper respiratory disease (1 source)Other specified disorders of nose and nasal sinuses; Translations: [OTH SPEC D/O NOSE NASAL SINUSES]Onset: 69-96-6157EbwpcmfkFyhsapsjl by nonmedicinal substances (14 sources)Bee sting; Translations: [Toxic effect of venom of bees, accidental (unintentional), initial encounter]Onset: 09-14-2023 Resolved: 852612-10-6124CkikzqdaJwkrpdt disorders (20 sources)Sick-euthyroid syndrome; Translations: [Sick-euthyroid syndrome] Onset: 320028-76-9115EilwaewuKfmtgukxckhu (1 source)CONTACT W/AND (SUSP) EXPOS COVID-19; Translations: [CONTACT W/AND (SUSP) EXPOS COVID-19]Onset: 09-30-2021 Results Test NameValueInterpretationReference RangeFacilityT3 REVERSE, LC/MS/MSon 62-92-7375O2 REVERSE, LC/MS/MS13 ng/dLNormal8-25Quest DiagnosticsComment on above:Result Comment: This test was developed and its analytical performance characteristics have been determined by [employer], [place]. It has not been cleared or approved by the U.S. Food and Drug Administration. This assay has been validated pursuant to the CLIA regulations and is used for clinical purposes.Performed By: #### 60679, 866, 859, 899 #### [facility] [address] [facility], [address] [place] [address] Recovery Specialist: Shane Powell MD #### [id number] #### [facility] [address] [facility] [place] [address] Recovery Specialist: Charles Bowling M.D.,PhDT3, FREEon 62-59-1641Gifv T3 [Mass/Vol]3.5 pg/mLNormal2.3-4.2Quest DiagnosticsComment on above:Performed By: #### 01237, 866, 859, 899 #### [facility] [address], [address] [place] [address] Recovery Specialist: Shane Powell MD #### [id number] #### [facility]/[address] [place], [place] Recovery Specialist: Charles Bowling M.D.,PhDT3, TOTALon 73-97-4825N3, ZSAJR632 ng/fCMjkkyu54-048Kjbmc DiagnosticsComment on above:Performed By: #### 01321, 866, 859, 899 #### [facility] [address], [address] [place] [address] Recovery Specialist: Shane Powell MD #### [id number] #### [facility]/[address] [place], [place] Recovery Specialist: Charles Bowling M.D.,PhDT4, FREE 01-29-5086Hcaz T4 [Mass/Vol]1.1 ng/dLNormal0.8-1.8Quest DiagnosticsComment on above:Performed By: #### 71467, 866, 859, 899 #### [facility] [address], [address] [place] [address] Recovery Specialist: Shane Powell MD #### [id number] #### [facility]/[address] [place], [place] Recovery Specialist: Charles Bowling M.D.,PhDTSHon 30-86-1330WDE Qn2.49 m[IU]/L NormalQuest DiagnosticsComment on above:Result Comment: Reference Range > or = 20 Years 0.40-4.50 Ranges First trimester 0.26-2.66 Second trimester 0.55-2.73 Third trimester 0.43-2.91Performed By: #### 74693, 866, 859, 899 #### [facility] [address], [address] [place] [address] Recovery Specialist: Shane Powell MD #### [id number] #### [facility]/[place] [address] [facility] [place], [place] Recovery Specialist: Charles Bowling M.D.,PhDT3 REVERSE, LC/MS/MSon 74-77-4409S3 REVERSE, LC/MS/MS14 ng/dLNormal8-25Quest DiagnosticsComment on above:Result Comment: This test was developed and its analytical performance characteristics have been determined by [employer], [place]. It has not been cleared or approved by the U.S. Food and Drug Administration. This assay has been validated pursuant to the CLIA regulations and is used for clinical purposes.Performed By: #### 859, 899, 02842, 866 #### [facility] [address], [address] [place] [address] Recovery Specialist: Shane Powell MD #### [id number] #### [facility]/[place] [address] [facility] [place], [place] Recovery Specialist: Charles Bowling M.D.,PhDT3, FREEon 10-32-9159Zphk T3 [Mass/Vol]3.2 pg/mLNormal2.3-4.2Quest DiagnosticsComment on above:Performed By: #### 859, 899, 74069, 866 #### [facility] [address], [address] [place] [address] Recovery Specialist: Shane Powell MD #### [id number] #### [facility]/[place] [address] [facility] [place], [place] Recovery Specialist: Charles Bowling M.D.,PhDT3, TOTALon 84-34-5412K2, PHHIS361 ng/kUQnvgld09-531Vtxwi DiagnosticsComment on above:Performed By: #### 859, 899, 96952, 866 #### [facility] [address], [address] [place] [address] Recovery Specialist: Shane Powell MD #### [id number] #### [facility] [address] [facility] [address] [place] Recovery Specialist: Charles Bowling M.D.,PhDT4, [facility] 01-56-1224Vaqh T4 [Mass/Vol]1.0 ng/dLNormal0.8-1.8Quest DiagnosticsComment on above:Performed By: #### 859, 899, 30686, 866 #### [facility] [address], [address] [place] [address] Recovery Specialist: Shane Powell MD #### [id number] #### [facility] [address] [facility] [address] [place] Recovery Specialist: Charles Bowling M.D.,PhDTSn 65-59-5706NTX Qn3.16 m[IU]/L NormalQuest DiagnosticsComment on above:Result Comment: Reference Range > or = 20 Years 0.40-4.50 Ranges First trimester 0.26-2.66 Second trimester 0.55-2.73 Third trimester 0.43-2.91Performed By: #### 859, 899, 35344, 866 #### [facility] [address], [address] [place] [address] Recovery Specialist: Shane Powell MD #### [id number] #### [facility] [address] [facility] [address] [place] Recovery Specialist: Charles Bowling M.D.,PhDPT CYTOLOGYon 95-61-4421UBRU CYTOLOGY(NOTE) Path Number: [id number] DIAGNOSIS Imaged ThinPrep Pap - Cervical (1 monolayer slide): Specimen Adequacy: Satisfactory for evaluation. -Endocervical/transformation zone component is absent. Descriptive Diagnosis: Negative for intraepithelial lesion or malignancy. Cytotech Screener: EY Electronically Signed Out Silvestre Davis CT(ASCP) ey/12/22/2024 Source of Specimen: A: Imaged ThinPrep Pap - Cervical (1 monolayer slide) HPV Reflex?......................HPV if ASCUS Clinical History Oral Contraceptives LEEP Z01.419 Routine shake maker exam without abnormal findings Processing Lab: [address] [address] Interpretation performed at [address] [address] This Pap Test has been evaluated with the assistance of the [employer] Pap Test Imaging System. The Pap smear is a screening test primarily for squamous epithelial lesions, which is subject to both false negative and false positive results. Your patient should be reminded to consult you immediately if she experiences any suspicious signs or symptoms, regardless of her Pap smear result. GYNECOLOGIC CYTOLOGY REPORT Patient Name: COLEEN MARTIN [facility] Rec: [id number] [facility] [employer] [facility] ANATOMIC PATHOLOGY [address] [place] [phone] [facility] Provider: RUSSELL Zamora MD [facility] HospitalCytology Reporton 95-46-9858Uprvdhcw report Cyto stain.thin prep Doc (Cvx/Vag)(NOTE) Path Number: [id number] DIAGNOSIS Imaged ThinPrep Pap - Cervical (1 monolayer slide): Specimen Adequacy: Satisfactory for evaluation. -Endocervical/transformation zone component is absent. Descriptive Diagnosis: Negative for intraepithelial lesion or malignancy. Cytotech Screener: EY Electronically Signed Out Silvestre Davis CT(ASCP) ey/12/22/2024 Source of Specimen: A: Imaged ThinPrep Pap - Cervical (1 monolayer slide) HPV Reflex?......................HPV if ASCUS Clinical History Oral Contraceptives LEEP Z01.419 Routine shake maker exam without abnormal findings Processing Lab: [address] [address] Interpretation performed at [address] [address] This Pap Test has been evaluated with the assistance of the [employer] Pap Test Imaging System. The Pap smear is a screening test primarily for squamous epithelial lesions, which is subject to both false negative and false positive results. Your patient should be reminded to consult you immediately if she experiences any suspicious signs or symptoms, regardless of her Pap smear result. GYNECOLOGIC CYTOLOGY REPORT Patient Name: COLEEN MARTIN [facility] Rec: [id number] [facility] [employer] [facility] ANATOMIC PATHOLOGY [address] [place] [phone] [facility] TOMOSYNTHESIS SCREENING BIon 84-48-2876[address] [address] Mammography Report Signed Patient: Coleen Martin MR#: [id number] : 1975 Acct:[id number] Age/Sex: 48 / F ADM Date: 12/29/23 Loc: MAMMO Attending Dr: RUSSELL YANEZ Ordering Physician: RUSSELL YANEZ Results: Date of Service: 12/29/23 Follow Up: Procedure(s): MM tomosynthesis screening BI Accession Number(s): [id number] cc: RUSSELL YANEZ ; MISHA HERNANDEZ Patient Name: COLEEN MARTIN MR#: [id number] : 1975 Exam Date: 12/29/2023 Ordering Doctor: DR RUSSELL YANEZ RADIOLOGY REPORT PROCEDURE: MM TOMOSYNTHESIS SCREENING BI COMPARISON: MG MAMM SCREEN 3D BAKARI CAD, 08/22/2021. MG MAMM SCREEN 3D BAKARI CAD, 09/11/2022. INDICATIONS: Screening for malignant neoplasm Calculator Name NCI Breast Cancer Risk Assessment Tool 5 Year Breast Cancer Risk 0.70% Lifetime Breast Cancer Risk 6.60% Personal Breast Cancer No Personal Ovarian Cancer No Treatments None Family Cancers Grandmother-maternal with breast cancer at age 40; Grandmother-maternal with ovarian cancer at age 58; Father with brain cancer at age 46. LOCATION: [facility] BREAST COMPOSITION: Scattered areas fibroglandular density. [...] BIOPSIED. Dictated by: Lyudmila Silverio MD on 12/30/2023 at 09:25 Approved by: Lyudmila Silverio MD on 12/30/2023 at 09:26 Dictated By: Lyudmila Silverio M.D. Signed By: 12/30/23926 DD/ 5 TD/TT: Manhole Builder:TBHRadiology, Radiologist, - 12/30/2023 [place] [address] Mammography Report Signed Patient: Coleen Martin MR#: [id number] : 1975 Acct:[id number] Age/Sex: 48 / F ADM Date: 12/29/23 Loc: MAMMO Attending Dr: RUSSELL YANEZ Ordering Physician: RUSSELL YANEZ Results: Date of Service: 12/29/23 Follow Up: Procedure(s): MM tomosynthesis screening BI Accession Number(s): [id number] cc: RUSSELL YANEZ ; MISHA HERNANDEZ Patient Name: COLEEN MARTIN MR#: [id number] : 1975 Exam Date: 12/29/2023 Ordering Doctor: DR RUSSELL YANEZ RADIOLOGY REPORT PROCEDURE: MM TOMOSYNTHESIS SCREENING BI COMPARISON: MG MAMM SCREEN 3D BAKARI CAD, 08/22/2021. MG MAMM SCREEN 3D BAKARI CAD, 09/11/2022. INDICATIONS: Screening for malignant neoplasm Calculator Name NCI Breast Cancer Risk Assessment Tool 5 Year Breast Cancer Risk 0.70% Lifetime Breast Cancer Risk 6.60% Personal Breast Cancer No Personal Ovarian Cancer No Treatments None Family Cancers Grandmother-maternal with breast cancer at age 40; Grandmother-maternal with ovarian cancer at age 58; Father with brain cancer at age 46. LOCATION: [facility] BREAST COMPOSITION: Scattered areas fibroglandular density. [...] BIOPSIED. Dictated by: Lyudmila Silverio MD on 12/30/2023 at 09:25 Approved by: Lyudmila Silverio MD on 12/30/2023 at 09:26 Dictated By: Lyudmila Silverio M.D. Signed By: 12/30/23926 DD/ 5 TD/TT: Manhole Builder: [facility] HospitalRadiology Study observation (narrative)[facility] TOMOSYNTHESIS SCREENING BIOrdered By: Radiologist Radiology on 69-96-7144JSFL [employer] Work Phone: mg MAMM SCREEN 3D BAKARI CADon 37-68-5377FX MAMM SCREEN 3D BAKARI CADPatient: YESSICA COLEEN Francisco Javier Exam Date: 09/11/2022 : 1975 Gender:F Ordering : DR MISHA HERNANDEZ . Admission #: [id number] Family : DR RUSSELL YANEZ Order #: [id number] CLICK HERE TO VIEW EXAM RADIOLOGY REPORT [...] brain cancer at age 45. LOCATION: [facility] BREAST COMPOSITION: Scattered areas fibroglandular density. [...] by: Lyudmila Silverio MD on 09/12/2022 at 10:58[facility] HospitalQ - T3 TOTALon 52-24-6316T6, EVKTI686 ng/zZIsgcqj06-805RwydowaaWilson HealthComschoolcraft [facility] hospital on above:Order Comment: [facility] performed at: [facility], [employer] [facility], [address] [facility], [address] [place], [address], Thermostat Maker: Shane Powell MD [facility] Date/Time: [facility] Results Received Date/Time: [facility] Reported Date/Time: [id number] By: #### 859X, 26966 #### [facility] Default [address] [place], [place] [address]X - T3,REVERSE,LC/MS/MSon 66-41-4215M8 REVERSE, LC/MS/MS24 ng/dL Normal8-25NoMercy Health – The Jewish HospitalComment on above:Order Comment: [facility] performed at: [facility], [employer], [address], [place], [place], , Thermostat Maker: Charles Bowling M.D.,PhD [facility] Date/Time: [facility] Results Received Date/Time: [facility] Reported Date/Time: [id number] Comment: This test was developed and its analytical performance characteristics have been determined by [employer], [place]. It has not been cleared or approved by the U.S. Food and Drug Administration. This assay has been validated pursuant to the CLIA regulations and is used for clinical purposes.Performed By: #### 859X, 28513 #### [facility] [address] [place] [address]Mwyq T3on 87-80-1810SV85.68 pg/mLNormal2.00-4.40NoMercy Health – The Jewish HospitalComment on above:Performed By: #### TSH, FT4, FT3 #### [facility] [address] [place], [place] [address]Intn T4on 93-16-9220Bnri T4 [Mass/Vol]1.25 ng/dLNormal 0.80-1.80N[facility]ann[facility]orial HospitalComment on above:Performed By: #### TSH, FT4, FT3 #### [facility] [address] [place], [place] [address]OQXdy 52-05-7914AFG7.210 uIU/mLNormal0.400-4.500[facility] SpecialistComment on above:Performed By: #### TSH, FT4, FT3 #### [facility] [address] [place], [place] [address]Xwxxb-33 PCR (CVDTB)on 59-60-4068NXLI-CoV-2 (COVID-19) RNA ADRIANA+probe Ql (Unsp spec)DetectedCritically abnormalNOT DETECTEDThe [facility] HospitalComment on above:Result Comment: This test is not yet approved or cleared by the [place] FDA. When there are no FDA-approved or cleared tests available, and other criteria are met, FDA can make tests available under an emergency access mechanism called an Emergency Use Authorization (EUA). The EUA for this test is supported by the [place] of Health and Human Service's (HHS's) declaration [...] no longer be used). Performed By: #### CVDTBH #### [facility] [address] [place], [place] [address] Dr. Archie Billingsley with Reflexon 79-90-0843Bzjqqesmqifcye and review of laboratory resultsAbnoWayne Hospital, KYTSH Qn5.33 m[IU]/LHMercy Health Anderson [facility], [place] HEAD NECK SOFT TISSUE THYROIDon 35-90-5192Rmfsqcw gland is diffusely enlarged. It is also heterogeneous and hypervascular.[facility] AZALEAEXAMINATION: THYROID ULTRASOUND 06/11/2020 COMPARISON: None HISTORY: ORDERING [...] nodes in the imaged portions of the neck.[facility] SystemB[facility] Mhpn Incoming Radiant Results From hetras/Visionnaire - 06/11/2020 5:37 PM EDT EXAMINATION: THYROID [...] enlarged. It is also heterogeneous and hypervascular. [facility] AZALEA Vital Signs Date TimeVital SignValuePerforming GoqycleqaKxndgbtc92-91-0790 14:55-0400Body vhposo777.7 cmEtera Hernandez MD Work Phone: NOCox SouthLbznbmyndc74-72-2808 14:55-0400Body mass index (BMI) [Ratio]29.35 kg/z4UdgjuhMisha Hernandez MD Work Phone: [facility] HospitalYsvfkajxie92-77-0721 14:55-0400Body sjrzyi99.54 kgMisha Hernandez MD Work Phone: [facility] HospitalUgxotdibka88-95-8713 14:53-0500Body byopet813.7 cmIvy Cancino MD Work Phone: [facility] HospitalQpxdqkowit91-58-5814 14:53-0500Body mass index (BMI) [Ratio]27.37 kg/w9OzbwqrIvy Cancino MD Work Phone: [facility] HospitalLibvraaaha67-81-5448 14:53-0500Body ngfuzc23.65 kgIvy Cancino MD Work Phone: [facility] HospitalFdrpxiabhu79-72-2812 14:53-0500Diastolic blood xcvrbozx80 mm[Hg]Ivy Cancino MD Work Phone: [facility] HospitalCuotugyvhe97-14-6952 14:53-0500Heart rate72 /min Ivy Cancino MD Work Phone: [facility] HospitalBmzjeqmndj85-38-0422 14:53-0500Systolic blood sfadynnb326 mm[Hg]Ivy Cancino MD Work Phone: [facility] HospitalCitzsmeeon11-18-6633 15:04-0500Body wvijei121.7 cmEtera Hernandez MD Work Phone: [facility] HospitalBqhbvlmhln31-00-5563 15:04-0500Body mass index (BMI) [Ratio]27.37 kg/x2RkecqkMisha Hernandez MD Work Phone: [facility] HospitalYzjiiranlh25-79-9304 15:04-0500Body utgtgf01.65 kgMisha Hernandez MD Work Phone: [facility] HospitalDwlvxnqwez73-80-2784 19:25-0400Body nuiprk176.72 Renee Meza Other [employer] Other 03-23-2023 19:25-0400Body mass index (BMI) [Ratio] 25.85 kg/h2JybqeYari Meza Other [employer] Other 03-23-2023 19:25-0400Body fabryhvpkxw15.1 [degF]Yari Meza Other [employer] Other 03-23-2023 19:25-0400Body .11 kgYari Meza Other [facility] Other 03-23-2023 19:25-0400Respiratory rate18 /minYari Meza Other [facility] Other 03-23-2023 19:25-5852CoO5% (BldA) [Mass fraction]98 % Yari Meza Other [facility] Other Encounters Encounter DateEncounter TypeCare ProviderFacilityStart: 08-23-2025 End: 11-01-1679Woijxg-up encounterEdmaki Hernandez MD Work Phone: [facility] MedicineComment on above: thyroidStart: 08-22-2025 End: 00-19-0562leklxsirpoIELMAU J HEMEYERNot AvailableStart: 08-17-2025 End: 90-73-9466Rahags outpatient visit 25 minutesEdmaki Hernandez MD Work Phone: [facility] [address] Family MedicineComment on above:Goiter diffuse (Primary Dx); ESS (euthyroid sick syndrome); Eric's disease; Acquired hypothyroidism; Chronic fatigue; Overweight; Abnormal thyroid examStart: 08-17-2025 End: 03-71-1501ebalsoldjdKKPWTN J HEMEYERNot AvailableStart: 08-17-2025 End: 55-72-7819Ijacly Robina Hernandez MD Work Phone: [facility] 100 Family MedicineStart: 08-17-2025 End: 37-29-6613Yqtvln flowsSruthi Hernandez MD Work Phone: [facility] MedicineStart: 02-22-2025 End: 26-77-2527Ijfjap outpatient visit 25 minutesMisha Hernandez MD Work Phone: [facility] CI FM 100Comment on above:Acquired hypothyroidism (CMS/HCC) (Primary Dx); ESS (euthyroid sick syndrome); Eric's disease (CMS/HCC); Chronic fatigue; OverweightStart: 02-22-2025 End: 59-00-8226rthhxnduffEZMILO J HEMEYERNot AvailableStart: 02-22-2025 End: 72-31-2195Pnljwa flowsSruthi Hernandez MD Work Phone: NOT[facility] CI FM 100Start: 02-22-2025 End: 81-35-9189Avskpz Robina Hernandez MD Work Phone: [facility] CI FM 100Start: 12-14-2024 End: 52-29-7347ayvmlfontzGYOSHA W [facility] HospitalStart: 12-14-2024 Encounter for gynecological examination (general) (routine) without abnormal findingsRUSSELL Arceo [facility] HospitalStart: 12-14-2024 End: 63-89-8002Nvldszy encounter procedureMisha Hernandez MD Work Phone: [facility] HealthStart: 12-14-2024 End: 87-74-0781Cgetphwcem hospital visit by physicianMisha Hernandez MD Work Phone: [facility] LABComment on above:Encounter for well woman exam with routine gynecological examStart: 12-14-2024 End: 59-82-8573Ujckbsxim Result EncounterGeneric External Data ProviderNOMS External Department UnsolicitedStart: 12-14-2024 End: 57-69-6853Fnflronry Result EncounterGeneric External Data ProviderNOMS External Department UnsolicitedStart: 11-15-2024 End: 40-92-2580Pschuf outpatient new 30 minutesIvy Cancino MD Work Phone: [facility] CI ENTComment on above:Tongue lesion (Primary Dx) Start: 11-15-2024 End: 77-88-9338qfjpkvslqnYLVBQB H TIMMISNot AvailableStart: 11-15-2024 End: 23-31-0731Bzcpwu Kevin Cancino MD Work Phone: [facility] CI ENTStart: 11-15-2024 End: 64-24-8417Bgurns flowsheetHianisha Cancino MD Work Phone: noms CI ENTStart: 08-29-2024 End: 71-12-6992Wtxzht outpatient visit 25 minutesMisha Hernandez MD Work Phone: NOOY CI FM 100Comment on above:Acquired hypothyroidism (CMS/HCC) (Primary Dx); Eric's disease (CMS/HCC); ESS (euthyroid sick syndrome); Chronic fatigue; Overweight; ThrushStart: 08-29-2024 End: 90-10-9582mdxjzgslvcLXJJIT J HEMEYERNot AvailableStart: 12-30-2023 End: 05-97-7159Cjfchozrj Result EncounterGeneric External Data ProviderNOMS External Department UnsolicitedStart: 12-30-2023 End: 20-59-1928Ckbjdtoxg Result EncounterGeneric External Data ProviderNOMS External Department UnsolicitedStart: 12-03-2023 End: 31-97-3121Uhypgip encounter Erick Hernandez MD Work Phone: bon [facility] CENTERStart: 12-03-2023 End: 71-67-0290Kuwesysmmn hospital visit by Dipak Hernandez MD Work Phone: mthz LaboratoryComment on above:Women's annual routine gynecological examinationStart: 01-15-2023 End: 87-28-2849wgukticrelLfgtf Keller Other [facility] Other Start: 35-98-4069Twkvtn outpatient new 20 minutesYari MezaG Urgent Care ClydeStart: 09-11-2022 End: 44-73-8589wmtlxsgqeiDC EDWARD HEMEYERFacility:E6Hhyic: 08-21-2022 End: 45-29-1810Deugbuk encounter Erick Hernandez MD Work Phone: mthz LaboratoryStart: 08-21-2022 End: 93-91-6238Dywgkyalnw hospital visit by Dipak Hernandez MD Work Phone: mthz LaboratoryComment on above:Women's annual routine gynecological examinationStart: 09-30-2021 End: 87-90-0788yylsnochtkRX MISHA HERNANDEZFacility:U7Slopp: 06-06-2021 End: 82-18-8840Sftivsi encounter procedureMisha Hernandez MD Work Phone: mthz LaboratoryStart: 06-06-2021 End: 42-83-1681Dmltsqvkxx hospital visit by Dipak Hernandez MD Work Phone: MTVJ LaboratoryComment on above:Women's annual routine gynecological examinationStart: 06-11-2020 End: 24-67-7859Jfvngimkgs hospital visit by physicianF [facility] Ultrasound RoomMTHZ LaboratoryComment on above:Neck swellingStart: 05-31-2020 End: 03-90-8154Zniuegkzia hospital visit by Dipak HernandezMTHZ LaboratoryComment on above:Encounter for well woman exam with routine gynecological exam Procedures DateProcedureProcedure DetailPerforming ClinicianStart: 06-23-2707Lgozijdlfhm Misha Hernandez MD Work Phone: Start: 08-08-7851Pbqxjyurukl observation [Identifier] in Cervix by Cyto Adi Hernandez MD Work Phone: Start: 79-65-9113GYMK CYTOLOGYGeneric External Data ProviderStart: 49-67-1065KB TOMOSYNTHESIS SCREENING BIGeneric External Data ProviderStart: 98-87-0299XqtdkuwcmtlAwblsf Hemeyer MD Work Phone: Start: 19-76-2163Hhzxjmsyibf observation [Identifier] in Cervix by Rocael Hernandez MD Work Phone: Start: 36-60-6478Fajgmepemxv observation [Identifier] in Cervix by Rocael Hernandez MD Work Phone: Start: 03-73-9076Jnvpwppgrya observation [Identifier] in Cervix by Rocael Hernandez MD Work Phone: Start: 44-61-3969Qs soft tissue head & neck real time imge Negro Yanez Work Phone: Start: 12-03-6983Lpher of thyroid stimulating hormone tshWekaren Yanez Work Phone: Start: 26-72-6632NpeldfctxfnFwujjs Hemeyer MD Work Phone: Plan of Treatment DateCare ActivityDetailAuthorStart: 81-92-6253Xulfhnncg for malignant neoplasm of colonNOMS HealthcareStart: 31-39-1463Ndntqqnyk for malignant neoplasm of cervixNOMS HealthcareStart: 13-36-0191Rfhgnjhhj for malignant neoplasm of cervix [facility] HealthcareStart: 77-39-4841Tffmyejaz vaccinationInfluenza Vaccine (#1)[facility] HealthcareComment on above:Postponed from 06/26/2025 (Patient Refused)Start: 57-68-1706Ddlakshta for malignant neoplasm of breastMammogramNOMS Healthcare Start: 31-20-3280Zlabjomcz for malignant neoplasm of breastBreast cancer screen [facility]iStart: 08-24-2025 End: 14-93-2854Vnytvgnw for fine needle aspiration of Thyroid glandIR Fine Needle Aspiration Thyroid Imaging Routine Nodule of right lobe of thyroid gland Multinodular goiter Reic's disease Acquired hypothyroidism Expected: 08/24/2025 (Approximate), Expires: 08/24/2026[facility] Healthcare Work Phone: Comment on above:Expected: 08/24/2025 (Approximate), Expires: 08/24/2026Start: 08-24-2025 End: 03-52-0413Z4, reverseT3, reverse Lab Routine ESS (euthyroid sick syndrome) Chronic fatigue Expected: 08/24/2025 (Approximate), Expires: 02/22/2026[facility] HealthcareComment on above:Expected: 08/24/2025 (Approximate), Expires: 02/22/2026Start: 08-24-2025 End: 99-53-2098Cnwqgrqtxzp [Units/volume] in Serum or PlasmaTSH Lab Routine Acquired hypothyroidism (CMS/HCC) Chronic fatigue Expected: 08/24/2025 (Approximate), Expires: 02/22/2026[facility] HealthcareComment on above:Expected: 08/24/2025 (Approximate), Expires: 02/22/2026Start: 08-24-2025 End: 86-73-9556Rslfbcdbg (T4) free [Mass/volume] in Serum or PlasmaT4, free Lab Routine Acquired hypothyroidism (CMS/HCC) Chronic fatigue Expected: 08/24/2025 (Approximate), Expires: 02/22/2026[facility] HealthcareComment on above:Expected: 08/24/2025 (Approximate), Expires: 02/22/2026Start: 08-24-2025 End: 45-52-5025Eprxzanqtivdjoih (T3) [Mass/volume] in Serum or PlasmaT3 Lab Routine ESS (euthyroid sick syndrome) Chronic fatigue Expected: 08/24/2025 (Approximate), Expires: 02/22/2026[facility] Healthcare Work Phone: Comment on above:Expected: 08/24/2025 (Approximate), Expires: 02/22/2026Start: 08-24-2025 End: 16-95-7047Lfkshwvozkzbdewk (T3) Free [Mass/volume] in Serum or PlasmaT3, free Lab Routine ESS (euthyroid sick syndrome) Chronic fatigue Expected: 08/24/2025 (Approximate), Expires: 02/22/2026[facility] HealthcareComment on above: Expected: 08/24/2025 (Approximate), Expires: 02/22/2026Start: 08-22-2025 End: 94-96-7808Xxhwpptgypsg / ancillary services eobgjwbdzm40/28/2025 2:15 PM EDT Ancillary Procedure [facility] [address] [place] [address] YSV[facility] [place] ImagingStart: 11-10-0240Dinoqkdjn for malignant neoplasm of cervixBON [facility]HTABUL[facility] CENTERStart: 08-17-2025 End: 36-86-6573Smddbjl encounter procedureNOMS CI FM 100Comment on above:ESS (euthyroid sick syndrome); Eric's disease; Acquired hypothyroidism; Chronic fatigue; OverweightStart: 08-17-2025 End: 76-18-2339WA Thyroid glandUS thyroid Imaging Routine Eric's disease Acquired hypothyroidism Goiter diffuse Abnormal thyroid exam Expected: 08/17/2025 (Approximate), Expires: 08/17/2026[facility] Healthcare Work Phone: Comment on above:Expected: 08/17/2025 (Approximate), Expires: 08/17/2026Start: 39-75-2579KTQUQ-19 Vaccine ()COVID- 19 Vaccine ()[facility] HealthcareStart: 58-95-6458Ygunpzauz vaccinationSEVIER VALLEY HOSPITAL HealthcareStart: 02-26-2025 End: 57-30-9182T2, reverseT3, reverse Lab Routine Chronic fatigue ESS (euthyroid sick syndrome) Expected: 02/26/2025 (Approximate), Expires: 08/29/2025[facility] HealthcareComment on above:Expected: 02/26/2025 (Approximate), Expires: 08/29/2025Start: 02-26-2025 End: 48-28-4640Qobjuqtntop [Units/volume] in Serum or PlasmaTSH Lab Routine Acquired hypothyroidism (CMS/HCC) Chronic fatigue Expected: 02/26/2025 (Approximate), Expires: 08/29/2025[facility] HealthcareComment on above:Expected: 02/26/2025 (Approximate), Expires: 08/29/2025Start: 02-26-2025 End: 32-72-2930Bpyypizqf (T4) free [Mass/volume] in Serum or PlasmaT4, free Lab Routine Acquired hypothyroidism (CMS/HCC) Chronic fatigue Expected: 02/26/2025 (Approximate), Expires: 08/29/2025[facility] HealthcareComment on above:Expected: 02/26/2025 (Approximate), Expires: 08/29/2025Start: 02-26-2025 End: 30-05-6968Olbrdezojsyqcoem (T3) [Mass/volume] in Serum or PlasmaT3 Lab Routine Chronic fatigue ESS (euthyroid sick syndrome) Expected: 02/26/2025 (Approximate), Expires: 08/29/2025[facility] Healthcare Work Phone: Comment on above:Expected: 02/26/2025 (Approximate), Expires: 08/29/2025Start: 02-26-2025 End: 28-95-5892Tdvcsyegpfbtozft (T3) Free [Mass/volume] in Serum or PlasmaT3, free Lab Routine Chronic fatigue ESS (euthyroid sick syndrome) Expected: 02/26/2025 (Approximate), Expires: 08/29/2025[facility] HealthcareComment on above: Expected: 02/26/2025 (Approximate), Expires: 08/29/2025Start: 02-22-2025 End: 12-64-1065Fxfkwiw encounter procedureNOMS CI FM 100Comment on above:ESS (euthyroid sick syndrome); Acquired hypothyroidism (CMS/HCC); Eric's disease (CMS/HCC); Chronic fatigue; OverweightStart: 72-91-7934Qessavnqa for malignant neoplasm of breastMammogram [facility] HealthcareStart: 12-05-2024 End: 43-42-1449Jpdihrk encounter tvtyfdgwr64/10/2025 3:40 PM EST Office Visit [facility] OBSTETRICS & GYNECOLOGY [address] [place] [address] Russell Yanez MD [address] [place] [address] [address] [place] [address] [facility] ConnecticutComment on above:PAPStart: 11-15-2024 End: 34-09-6056Cunwocp encounter vkpbjktie71/21/2025 3:00 PM EST Office Visit [facility] [address] [facility] [address] [place] [address] Ivy Cancino MD [address] [facility] [address] [place] [address] ArrivedNOMS CI ENTComment on above:ArrivedStart: 77-53-7916LIYKB-19 Vaccine ( season)COVID-19 Vaccine ( season)Jason Hinton [facility] SystemStart: 66-25-7265Vovefdzgy vaccinationInfluenza Vaccine (#1)[facility] HospitalStart: 82-82-2868Pcnbrcnmc for malignant neoplasm of cervixBON [facility]: 34-25-7359Lryfnufqq vaccinationFlu vaccine (#1)[facility]art: 44-81-4049Lltysyrnsvmi 50+ years Vaccine (1 of 1 - PCV)Pneumococcal 50+ years Vaccine (1 of 1 - PCV)[facility] Start: 07-53-4618Fcddmvai vaccine (1 of 2)Shingles vaccine (1 of 2)[facility]Start: 08-27-2023 End: 76-68-0668Udklcva encounter gxuxtadjn83/02/2023 Office Visit Obstetrics and Gynecology Russell Yanez MD [address] [place] [address] [facility] OBSTETRICS & [facility]YNECOLOGY Part [facility]: 79-78-0463Nkrojumgj for malignant neoplasm of cervixCervical cancer [facility]: 05-26-2023 Influenza vaccinationFlu vaccine (#1)[facility]: 06-06-2022 Depression ScreenDepression [facility]: 05-26-2022 Influenza vaccinationFlu vaccine (#1)[facility]: 03-07-2022 Screening for malignant neoplasm of cervixCervical cancer [facility]: 17-08-5289Qijochogf vaccinationFlu vaccine (#1)[facility] Work Phone: start: 06-06-2021 End: 81-06-2562Jtilnd Visit06/06/2021 Office Visit Obstetrics and Gynecology Russell Yanez MD [address] [place] [address] [facility] OBST[facility]ICS & GYNECOLOGYStart: 38-66-0940Sesef panelBON [facility]: 18-37-2576Bwwzmuxek vaccinationFlu vaccine (#1)[facility]: 84-39-1775Hkxzayhhq for malignant neoplasm of colonBON [facility]ENTERStart: 77-45-8882Yzlzuhio screenDiabetes screenBON [facility]: 49-57-7252Qaokkedrj for malignant neoplasm of cervixBON [facility]: 1993 DTaP/Tdap/Td vaccine (1 - Tdap)DTaP/Tdap/Td vaccine (1 - Tdap)[facility]: 66-11-1765Sabiaaqrx B vaccine (1 of 3 - 19+ 3-dose series)Hepatitis B vaccine (1 of 3 - 19+ 3-dose series)[facility]: 1993 Hepatitis B Vaccines (1 of 3 - 19+ 3-dose series)Hepatitis B Vaccines (1 of 3 - 19+ 3-dose series)[facility] HospitalStart: 28-33-8801Irngaecdx C screeningHepatitis C [facility]art: 13-20-8973AZOHO-19 Vaccine (1)COVID-19 Vaccine (1)[facility] Omicia Work Phone: start: 02-01-2452Voqkajnmbj ScreenDepression ScreenBON [facility] Hospitalart: 64-89-2546ISgJ/Tdap/Td Vaccines (1 - Tdap) DTaP/Tdap/Td Vaccines (1 - Tdap)[facility] HospitalStart: 02-20-6952NWX Vaccines (1 of 1 - Standard series)MMR Vaccines (1 of 1 - Standard series)[facility] Start: 56-45-5193GVKRI-19 Vaccine (#1)COVID-19 Vaccine (#1)[facility] Centerart: 81-95-5741Qvfptbdfx B vaccine (1 of 3 - 3-dose series)Hepatitis B vaccine (1 of 3 - 3-dose series)[facility]: 1974 Hepatitis C screeningHepatitis C screenTrinity Health System [facility] Health Work Phone: start: 42-83-6859Sfieyfoca for malignant neoplasm of colonNOMS Healthcare End: 57-68-9233Tltsfdqhkxqce procedure, preparation of smear, genital sourcePAP SMEAR Lab Routine Encounter for well woman exam with routine gynecological exam 1 Occurrences starting 05/31/2020 until 05/31/2020[facility], KYComment on above:1 Occurrences starting 05/31/2020 until 05/31/2020 End: 88-08-1027Bdpnardvlawui procedure, preparation of smear, genital sourcePAP SMEAR Lab Routine Women's annual routine gynecological examination 1 Occurrences starting 06/06/2021 until 06/06/2021[facility] O[facility] Work Phone: comment on above:1 Occurrences starting 06/06/2021 until 06/06/2021 End: 33-76-8420Emernlodgyczg procedure, preparation of smear, genital sourcePAP SMEAR Lab Routine Women's annual routine gynecological examination 1 Occurrences starting 08/21/2022 until 2[facility] Work Phone: comment on above:1 Occurrences starting 08/21/2022 until 08/21/2022 End: 23-81-9676Itytblmthwvfz procedure, preparation of smear, genital sourcePAP Smear Lab Routine Encounter for well woman exam with routine gynecological exam 1 Occurrences starting 12/14/2024 until 5[facility] [place] Comment on above:1 Occurrences starting 12/14/2024 until 12/14/2024 End: 70-92-3670Nzue T4 [Mass/Vol]T4, Free Lab Routine Once for 1 Occurrences starting 06/11/2020 until 06/11/2020[facility], AZALEAComment on above:Once for 1 Occurrences starting 06/11/2020 until 06/11/2020Free T4 [Mass/Vol]T4, Free Lab Routine 06/11/2020 3:46 PM [facility] [place] Payers DatePayer CategoryPayerPolicy [id number] Cross Blue [id number] [id number]7-2053Vkykopx [id number] 2.16.840.1.930418.3.57[id number] 2.16.840.1.189046.3.57[id number] 2.16.840.1.254310.3.57[id number] 2.16.840.1.607705.3.57[id number] 2.16.840.1.556596.3.57[id number] 2.16.840.1.300718.3.57[id number] 2.16.840.1.134656.3.57[id number] 2.16.840.1.695155.3.579.2.[id number] 1.2.840.271512.1.13.239.2.7.3.707355.315 Social History DateTypeDetailFacilityStart: 05-31-2020 End: 46-67-7986Shdttjc smoking status NHISFormer smokerBON [facility] Start: 05-31-2020 End: 89-20-1850Uqfckhq use and exposureNever usedCleveland Clinicart: 05-31-2020 End: 21-95-3467Bmztxex intakeCurrent non-drinker of alcohol (finding)[facility]: 03-07-2019 End: 24-28-8437Nfdislj Commentover 20 years agoSt. [facility]'s Hospital: 83-86-7805Kiy Assigned At BirthNot on [place], [place]Exposure to SARS-CoV-2 (event)Not sureMercy Health- [place], [place]History of tobacco useCurrent smokerM[facility] Work Phone: start: 12-03-2023 End: 03-47-3106Cpu Assigned At BirthMOUNTAIN VIEW REGIONAL MEDICAL CENTERStart: 12-03-2023 End: 57-96-8004Mlpcohk of Social functionMOUNTAIN VIEW REGIONAL MEDICAL CENTERStart: 18-62-2654Lvaossl Health Questionnaire 9 item (PHQ-9) total score [Reported]0B[facility]ENTERStart: 09-14-2023 End: 44-33-7773Cakkmmn smoking status NHISNever smoked tobaccoBarnes-Jewish [facility] Start: 81-30-4224Npq assigned at birthFeMercy Philadelphia HospitalStart: 01-07-2023 Gender identityIdentifies as female gender (finding)[facility] HealthcareStart: 72-87-6265Itzqiu orientationHeterosexual (finding)[facility] HealthcareHistory of tobacco useCigarette SmokerBarnes-Jewish West County HospitalStart: 11-15-2024 End: 31-71-5621Jkmogxvzx beverage intakeLifetime non-drinker (finding)[facility] HealthcareHas the electric, gas, oil, or water company threatened to shut off services in your home in past 12MoNoBon [facility](I/We) worried whether (my/our) food would run out before (I/we) got money to buy more.Never trueLewisgale Hospital PulaskiHow often do you need to have someone help you when you read instructions, pamphlets, or other written material from your doctor or pharmacy [SILS]NeverNOMS HealthcareDo you belong to any clubs or organizations such as judaism groups, unions, fraternal or athletic groups, or school groups? YesNOMS HealthcareAre you now , , , , never or living with a partner?MarriedNOMS HealthcareHow hard is it for you to pay for the very basics like food, housing, medical care, and heatingNot very hardNOMS HealthcareDo you feel stress - tense, restless, nervous, or anxious, or unable to sleep at night because yourmind is troubled all the time - these days [OSQ]Only a littleNOMS Healthcare Functional Status VgklUazqtavsmaOzliwxOdfkznys57-66-6999Sejebna Health Questionnaire 2 item (PHQ- 2) [Reported][facility] HospitalYcezlpptgn37-36-7077Xgwup score [AUDIT-C]0 02/21/2025 4:04 PM EDT Gary TovarBarnes-Jewish West County HospitalMplxezuoby02-65-9002Wea often do you have a drink containing alcohol?Never 02/21/2025 4:04 PM EDT [facility], Generic NeverBarnes-Jewish West County HospitalYlbjsuukxu05-63-8417Rztbkcjzta statusPatient does not drink 02/21/2025 4:04 PM EDT [facility], Generic Patient does not drinkBarnes-Jewish West County HospitalHcpcichwub10-57-4408Pdi often do you have 6 or more drinks on 1 occasion?Never 02/21/2025 4:04 PM EDT [facility], [facility] Clinical Notes 01-15-2023 to 08-23-2025 Note Date & AndgHscoDxqzlamp17-81-0817 Telephone encounter Note* Telephone Encounter - Misha Hernandez MD - 08/23/2025 5:30 PM EDT I spoke with Coleen by phone. I reviewed the results of the thyroid ultrasound with her. 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 She has 2 thyroid nodules. The 1 in the right lobe is greater than 2.5 cm necessitating FNA for evaluation. Technique: Ultrasound evaluation was performed of the thyroid gland. Comparison: None available Findings: The right lobe of the thyroid gland measures 8.1 x 3.8 x 3.5 cm. The right lobe is heterogenous. A TI-RADS 3 nodule of the mid aspect of the right lobe measures 2.4 x 1.8 x 3.1 cm. The left lobe of the thyroid gland measures 6.1 x 2.6 x 2.8 cm. The left lobe is heterogenous. A TI-RADS 3 nodule of the mid aspect of the left lobe measures 0.6 x 0.6 x 0.6 cm. The isthmus measures 0.8 cm. There is increased vascularity of the thyroid gland. 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 Thyroid nodules as detailed. [facility] [id number] Miscellaneous Notes* Telephone Encounter - Misha Hernandez MD - 08/23/2025 5:30 PM EDT I spoke with Coleen by phone. I reviewed the results of the thyroid ultrasound with her. 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 She has 2 thyroid nodules. The 1 in the right lobe is greater than 2.5 cm necessitating FNA for evaluation. Technique: Ultrasound evaluation was performed of the thyroid gland. Comparison: None available Findings: The right lobe of the thyroid gland measures 8.1 x 3.8 x 3.5 cm. The right lobe is heterogenous. A TI-RADS 3 nodule of the mid aspect of the right lobe measures 2.4 x 1.8 x 3.1 cm. The left lobe of the thyroid gland measures 6.1 x 2.6 x 2.8 cm. The left lobe is heterogenous. A TI-RADS 3 nodule of the mid aspect of the left lobe measures 0.6 x 0.6 x 0.6 cm. The isthmus measures 0.8 cm. There is increased vascularity of the thyroid gland. 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 Thyroid nodules as detailed. documented in this encounterBarnes-Jewish [facility] [id number] NoteUS THYROID History: Thyroiditis Technique: Ultrasound evaluation was performed of the thyroid gland. Comparison: None available Findings: The right lobe of the thyroid gland measures 8.1 x 3.8 x 3.5 cm. The right lobe is heterogenous. A TI-RADS 3 nodule of the mid aspect of the right lobe measures 2.4 x 1.8 x 3.1 cm. The left lobe of the thyroid gland measures 6.1 x 2.6 x 2.8 cm. The left lobe is heterogenous. A TI-RADS 3 nodule of the mid aspect of the left lobe measures 0.6 x 0.6 x 0.6 cm. The isthmus measures 0.8 cm. There is increased vascularity of the thyroid gland. 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 Thyroid nodules as detailed. ACR recommendations: TI-RADS level 1: Benign: No FNA TI-RADS level 2: Not suspicious: No FNA TI-RADS level 3: Mildly suspicious: FNA if ? 2.5 cm; Follow if ? 1.5 cm at 1, 3, and 5 years. TI-RADS level 4: Moderately suspicious: FNA if ? 1.5 cm; Follow if ? 1 cm at 1, 2, 3, and 5 years. TI-RADS level 5: Highly Suspicious: FNA if ? 1 cm; Follow if ? 0.5 cm annually until 5 years. ELECTRONICALLY SIGNED BY: Kenia Remy [id number] History of Present illness Narrative* Misha Hernandez MD - 08/17/2025 3:00 PM EDT Images from the original note were not included. Patient ID: Coleen Martin is a 50 y.o. female who presents for: Thyroid: Pt here today to review his/hers thyroid labs and any medication changes needed. Fatigue: Present, Unchanged Weight Gain: Present Inability to lose weight: Present, Unchanged Hair Changes: Present, unchanged He/She is following the thyroid diet: poor He/She are taking medications as directed: Good He/She are exercising at least 3 days out of the week for 30 minutes or more: poor Review of Systems Constitutional: Positive for fatigue. Negative for appetite change. HENT: Negative for trouble swallowing and voice change. Cardiovascular: Positive for palpitations. Musculoskeletal: Negative for arthralgias and myalgias. Psychiatric/Behavioral: Positive for sleep disturbance. The patient is nervous/anxious. Endocrine: Negative for cold intolerance and heat intolerance. She is noticing that her goiter is getting bigger. No specific dysphagia. It is somewhat uncomfortable. Not painful. Denies fibrocystic breast pain. Calculated THY Ratio: About 11 Objective The patient is pleasant and in no acute distress The patient has good eye contact and clear speech On visual examination from my stool in the room it is obvious that she has a goiter. On examination her thyroid is a proximally 3 times the size of normal clinically. It is asymmetric with the right portion of the thyroid gland actually pushing on the SCM. We will it has a mildly nodular feeling there is no specific nodule or mass appreciated. Shotty anterior cervical adenopathy and no supraclavicular adenopathy. Visit Vitals Ht 5' 8 Wt 193 lb BMI 29.35 kg/m OB Status Having periods Smoking Status Former BSA 2.05 m Allergies[1] Medications Ordered Prior to Encounter[2] 1. ESS (euthyroid sick syndrome) Chronic problem that is stable and the patient has plenty of medication as we had to do a fill for her doing my absence from the office. No changes to her medications at this time. 2. Eric's disease Chronic problem, causative of the acquired hypothyroidism, clinically asymptomatic and follow longitudinally. - US thyroid; Future - US thyroid 3. Acquired hypothyroidism This is a complex chronic problem, stable, [...] the patient's current prescriptions and discussed the possibilitiesof medication renewals, adjustments, new medication start, or [...] arise or if any problems occur. - US thyroid; Future - US thyroid 4. Chronic fatigue Chronic problem, stable, complex in nature with moderate decision making. I discussed with the patient or their licensing representative, their fatigue issues. We discussed how this is improved significantly. We discussed how this is almost always a multifactorial problem. We discussed how we will continue to search for refinements in their current treatments or evaluation for further disease processes and then support or treat them as appropriate. We discussed how we can frequently manage the symptoms, but may not be able to completely cure or resolve the issue. The patient will almost certainly need to continue to make lifestyle changes including diet, sleep, exercise, and stress management as appropriate. The patient was given a chance to ask questions and all questions were answered. 5. Overweight Lifestyle changes as noted above 6. Goiter diffuse (Primary) I did discuss with her and this seems larger than I remember and she also thinks it is growing. It does have the asymmetry in his actually pushing on her SCM. At this time she does not need an ultrasound of the thyroid for further evaluation of this asymmetrically enlarged thyroid gland. If further discussed with her she had not heard from scheduling within 2 weeks she is to contact the office. We discussed if this is a multinodular goiter we may want to begin TSH suppression therapy althoughthis is not the standard of care. - US thyroid; Future - US thyroid 7. Abnormal thyroid exam As above - US thyroid; Future - US thyroid Please Note: Portions of this chart may have been created using voice recognition software. Occasionally a wrong-word or sound-like substitutions may have occurred due to inherent limitations of the voice recognition software. Please read the chart carefully and recognize, using context, where the substitutions may have occurred. [1] Allergies Allergen Reactions Bee Venom [2] Current Outpatient Medications on File Prior to [...] facility-administered medications on file prior to visit. documented in this encounterBarnes-Jewish West County [id number] History of Present illness Narrative* Misha Hernandez MD - 02/22/2025 3:30 PM EDT Images from the original note were not included. Patient ID: Coleen Martin is a 49 y.o. female who presents for: Thyroid: Pt here today to review his/hers thyroid labs and any medication changes needed. Fatigue: Present, Unchanged Weight Gain: Absent Inability to lose weight: Present, Unchanged Hair Changes: Present, brittle, breaking He/She is following the thyroid diet: Good He/She are taking medications as directed: Good He/She are exercising at least 3 days out of the week for 30 minutes or more: Good Review of Systems Constitutional: Positive for fatigue. Negative for appetite change. HENT: Negative for trouble swallowing and voice change. Cardiovascular: Negative for palpitations. Musculoskeletal: Negative for arthralgias and myalgias. Psychiatric/Behavioral: Positive for sleep disturbance. The patient is nervous/anxious. Endocrine: Negative for cold intolerance and heat intolerance. Labs reviewed individually with the patient Calculated THY Ratio: 10.4 Objective The patient is pleasant and in no acute distress The patient has good eye contact and clear speech Visit Vitals OB Status Having periods Smoking Status Former Allergies Allergen Reactions Bee Venom Current Outpatient Medications on File Prior to Visit Medication Sig Dispense Refill EPINEPHrine (AUVI-Q) 0.15 mg/0.15 mL IJ solution auto-injector injection Inject 0.3 mL (0.3 mg) into the shoulder, thigh, or buttocks if needed for anaphylaxis. 1 each 1 Multiple Vitamin (multivitamin) tablet Take 1 tablet by mouth Daily Sprintec 28 0.25-35 MG-MCG tablet Take 1 tablet by mouth in the morning. No current facility-administered medications on file prior to visit. 1. ESS (euthyroid sick syndrome) In prescribing a renewal to their current [...] if any problems occur. (Utilizing the original guidelines or the 2020 office/outpatient code guidelines [...] T3 - T3, reverse - T3, free 2. Acquired hypothyroidism (CMS/HCC) (Primary) This is a [...] the patient's current prescriptions and discussed the possibilitiesof medication renewals, adjustments, new medication start, or [...] TSH; Future - T4, free - TSH 3. Eric's disease (CMS/HCC) Chronic problem, causative of the acquired hypothyroidism, clinically asymptomatic and follow longitudinally. 4. Chronic fatigue Chronic problem, stable, complex in nature with moderate decision making. I discussed with the patient and/or their licensing representative, their fatigue issues. We discussed how [...] - TSH 5. Overweight Lifestyle changes as mentioned above. documented in this encounterBarnes-Jewish [facility] [id number] History of Present illness Narrative* Ivy Cancino MD - 11/15/2024 3:00 PM EST Subjective Patient ID: Coleen Martin is a [...] Padmini Salas Ovarian cancer Maternal Grandmother Padmini Salas Cancer Maternal Grandmother Padmini Salas Cancer Maternal Grandfather Rusty Salas Cancer Mother's Sister Imani Chapman Thyroid disease Father's Sister Janice Mondragon Active Ambulatory Problems Diagnosis Date Noted Acquired hypothyroidism (CMS/HCC) 08/13/2023 Chronic fatigue 08/13/2023 ESS (euthyroid sick syndrome) 08/13/2023 Eric's disease (CMS/HCC) 08/13/2023 Overweight 08/13/2023 Bee sting reaction 09/14/2023 Resolved Ambulatory Problems Diagnosis Date Noted No Resolved Ambulatory Problems Past Medical History: Diagnosis Date Dental disease Disease of thyroid gland (CMS/HCC) Glaucoma (CMS/HCC) Past Surgical History: Procedure Laterality Date APPENDECTOMY [...] be an effective tx. documented in this encounterBarnes-Jewish West County [id number] History of Present illness Narrative* Misha Hernandez MD - 08/29/2024 3:30 PM EST Images from the original note were not [...] analytical performance characteristics have been determined by [employer], [place]. It has not been cleared or [...] almost tell she has been using a tonguescraper in the center in its more off [...] on an empty stomach. VANESSA; Sigma or [employer] brands only 180 tablet 1 No current [...] the patient's current prescriptions and discussed the possibilitiesof medication renewals, adjustments, new medication start, or [...] are where she probably needs to be Bhaskar am worried I would put her into [...] if any problems occur. (Utilizing the original guidelines or the 2020 office/outpatient code guidelines [...] I discussed with the patient and/or their licensing representative, their fatigue issues. We discussed how [...] an immune system evaluation at this time. Weare going to [facility] out to [facility] tomorrow and find out what we need to do in order to actually get a culture and sensitivity of this to make sure that were coming back with the yeast or fungus on her tongue. We will call her back after we get that established. documented in this encounterBarnes-Jewish [facility] [id number] Evaluation note* Encounter Date Diagnosis Assessment Notes Treatment Notes Treatment Clinical Notes Dec, Oral thrush (ICD-10 - B37.0) Discussed diagnosis with patient. Advised to take medication as directed. May continue salt water gargles. Follow up if no improvement of symptoms. Patient verbalizes understanding and is agreeable with treatment plan [employer] Other Evaluation note* Diagnosis Women's annual routine gynecological examination documented in this encounter [employer] Phone: evaluation note* Diagnosis Women's annual routine gynecological examination documented in this encounter [email or web address] Phone: evaluation note* Diagnosis Women's annual routine gynecological examination documented in this encounter [employer] [facility]* Diagnosis Acquired hypothyroidism (CMS/HCC)- Primary Unspecified hypothyroidism Eric's disease (CMS/HCC) Chronic lymphocytic thyroiditis ESS (euthyroid sick syndrome) Euthyroid sick syndrome Chronic fatigue Other malaise and fatigue Overweight Thrush Candidiasis of mouth [facility] Diagnosis Tongue lesion- Primary Unspecified condition of the tongue [facility]* Diagnosis Encounter for well woman exam with routine gynecological exam [facility]* Diagnosis Acquired hypothyroidism (CMS/HCC)- Primary Unspecified hypothyroidism ESS (euthyroid sick syndrome) Euthyroid sick syndrome Eric's disease (CMS/HCC) Chronic lymphocytic thyroiditis Chronic fatigue Other malaise and fatigue Overweight documented in [facility] encounter [facility]* Diagnosis Goiter diffuse- Primary Goiter, unspecified ESS (euthyroid sick syndrome) Euthyroid sick syndrome Eric's disease Chronic lymphocytic thyroiditis Acquired hypothyroidism Unspecified hypothyroidism Chronic fatigue Other malaise and fatigue Overweight Abnormal thyroid exam documented in this encounter [facility]* Diagnosis Nodule of right lobe of thyroid gland- Primary Multinodular goiter Nontoxic multinodular goiter Eric's disease Chronic lymphocytic thyroiditis Acquired hypothyroidism Unspecified hypothyroidism documented in this encounter [facility] HealthcareHistory general Narrative - Reported* Type Description Date Medical History glaucoma Surgical HistoryappendectomySurgical HistoryLEEPHospitalization Historysee above [employer] Other Assessments Diagnosis Encounter for well woman exam with routine gynecological exam Diagnosis Neck swelling Swelling, mass, or lump in head and neck Diagnosis Neck swelling Swelling, mass, or lump in head and neck Advance Directives No Advanced Directives Records FoundDocuments on File TypeDate RecordedPatient RepresentativeExplanationAdvance Directives and Living WillPower of AttorneyTypeDate RecordedPatient RepresentativeExplanationACP- Advance DirectiveACP-Power of AttorneyTypeDate RecordedPatient Geriatric Assistant ExplanationACP-Advance DirectiveACP-Power of Freelance Operator Reason for Referral StatusReasonSpecialtyDiagnoses / ProceduresReferred By ContactReferred To ContactClosedRadiology Diagnoses Neck swelling Procedures US Head Neck Soft Tissue Thyroid Russell Yanez MD [address] [place] [address] [address] [place] [address] [facility] [address] [place] [address] Summary Purpose Family History No Family History Records FoundNo Family History Records FoundNo Family History Records FoundNo Family History Records FoundNo Family History Records Found Additional Source Comments Reason for Visit (unrecogniz ed section and content) StatusReasonSpecialtyDiagnoses / ProceduresReferred By ContactReferred To ContactClosedRadiology Diagnoses Neck swelling Procedures US Head Neck Soft Tissue Thyroid Russell Yanez MD [address] [place] [id number] [facility] Ultrasound [address] [place] [id number] ReasonCommentsHypothyroidismReasonCommentsFissure of Tongue INFORMATION SOURCE (unrecogn ized section and content) DATE CREATED AUTHOR 03/25/2022 [facility] Manager DATE CREATED AUTHOR AUTHOR'S ORGANIZ ATION 09/15/2022 [facility] DATE CREATED AUTHOR AUTHOR'S ORGANIZ ATION 12/24/2024 [facility] DATE CREATED AUTHOR AUTHOR'S ORGANIZ ATION 08/07/2025 [facility] DATE CREATED AUTHOR AUTHOR'S ORGANIZ ATION 08/27/2025 [facility] [employer]IC Care Teams (unrecognized sec tion and content) Team MemberRelationshipSpecialtyStart DateEnd Date Misha Hernandez MD PCP - General02/20/16Team MemberRelationshipSpecialtyStart DateEnd Date Misha Hernandez MD PCP - General02/20/16Team MemberRelationshipSpecialtyStart DateEnd Date Misha Hernandez MD [address] [place] [address] (Fax) PCP - [facility]01/24/21 Misha Hernandez MD [address] [place] [address] (Fax) PCP - GeneralFamily Medicine03/03/23Team MemberRelationshipSpecialtyStart DateEnd Date Misha Hernandez MD [address] [place] [address] (Fax) PCP - [employer]01/24/21 Misha Hernandez MD [address] [place] [address] (Fax) PCP - GeneralFamily Medicine03/03/23Team MemberRelationshipSpecialtyStart DateEnd Date Misha Hernandez MD [address] [place] [address] (Fax) PCP - [facility] [employer]01/24/21 Misha Hernandez MD [address] [place] [address] (Fax) PCP - GeneralFamily Medicine03/03/23Team MemberRelationshipSpecialtyStart DateEnd Date Misha Hernandez MD (Fax) PCP - General4Team MemberRelationshipSpecialtyStart DateEnd Date Misha Hernandez MD [address] [place] [address] (Fax) PCP - [employer]01/24/21 Misha Hernandez MD [address] [place] [address] (Fax) PCP - GeneralFamily Medicine03/03/23Team MemberRelationshipSpecialtyStart DateEnd Date Misha Hernandez MD [address] [place] [address] (Fax) PCP - [facility] [employer]01/24/21 Misha Hernandez MD [address] [place] [address] (Fax) PCP - GeneralFamily Medicine03/03/23Team MemberRelationshipSpecialtyStart DateEnd Date Misha Hernandez MD [address] [place] [address] (Fax) PCP - [employer] Misha Hernandez MD [address] [place] [address] (Fax) PCP - GeneralFamily Medicine03/03/23Team MemberRelationshipSpecialtyStart DateEnd Date Misha Hernandez MD [address] [place] [address] (Fax) PCP - GeneralFamily Medicine03/03/23 Misha Hernandez MD [address] [place] [address] (Fax) PCP - [employer]02/24/25Team MemberRelationshipSpecialtyStart DateEnd Date Misha Hernandez MD [address] [place] [address] (Fax) PCP - GeneralFamily Medicine03/03/23 Misha Hernandez MD [address] [place] [address] (Fax) PCP - [employer]02/24/25Team MemberRelationshipSpecialtyStart DateEnd Date Misha Hernandez MD [address] [place] [address] (Fax) PCP [facility]03/03/23 Misha Hernandez MD [address] [place] [address] (Fax) PCP - [employer]02/24/25Team MemberRelationshipSpecialtyStart DateEnd Date Misha Hernandez MD [address] [place] [address] (Fax) PCP - [employer] Misha Hernandez MD [address] [place] [address] (Fax) [facility]03/03/23 Misha Hernandez MD [address] [place] [address] (Fax) PCP - [facility]02/24/25 FOR RECORDS PERTAINING TO PATIENTS WHO ARE [...] BE BASED ON THE PRIMARY CLINICAL RECORDS. [employer] [facility]. provides no warranty or guarantee of the accuracy or completeness of information in this document.
[2025-10-03 09:54] LABS: INR 0.98; Prothrombin Time 10.3 sec (9.0-11.6)
[2025-10-03 10:30] VITALS: BP 131/72; PULSE 69; O2SAT 99; BMI 30.4
[2025-10-03] MEDS: LIDOCAINE HCL 2% 400 MG/20 ML MDV 10 ML INJ (10:55)
--- NOTE | 2025-10-03 14:45 | SUR.PREOP ---
09/14/25 Pt instructed on procedure, date, time,and prep.
== END 2025-10-03 11:35 | disposition home or self-care (01) ==
LOC: US 09:31
PROVIDERS: Pathology Anatomic Pathology & Clinical Pathology; Radiology Diagnostic Radiology; PCP Family Medicine; Visit Provider Family Medicine
DX: E04.2 Nontoxic multinodular goiter (principal); E06.3 Autoimmune thyroiditis; E03.9 Hypothyroidism, unspecified
CPT/HCPCS: 10005; 36415; 85049; 85610